=== PATIENT | male | born 1970 | race Hispanic/Latino ===

== ENCOUNTER 2016-05-27 15:12 | Emergency (ER) | payer OTHER ==
--- NOTE | 2016-05-27 15:35 | Emergency Department Report ---
Stated Complaint: POSS STROKE Time Seen by Provider: 05/27/16 15:29 - HPI History of Present Illness: [id number] male comes in today for concern of right-sided weakness to his smile and reported slurred by family members about 08 30 this morning. Patient reports he doesn't feel like his speech was slurred or space was drooping. Patient has a past medical history hypoglycemia no diagnosis of diabetes. She does report he had a fall getting out of his work truck today is that his legs are numb mostly the left leg and left side. - Exam Physical Exam: Patient's alert and oriented. Neurologic exam left-sided weakness with handgrip , tongue protrusions intact there is no deviation uvula is intact and midline, strengths 5 out of 5 on the right to 5 on the left. Handgrip weakness on the left, there is some mild droopiness to the left side corner of the smile. Cardiovascular patient tachycardic respiratory clear to auscultation bilateral MSE screening note: Focused history and physical exam performed. Due to findings the following was ordered: Evaluated by this provider in MSE triage. She ate stroke protocol. Patient evaluated in main ER ED Disposition for MSE Condition: Stable
[2016-05-27 15:53] VITALS: BP 133/83
--- NOTE | 2016-05-27 16:40 | Cat Scan Report ---
FINAL REPORT PROCEDURE: CT HEAD/BRAIN WO CON TECHNIQUE: Computerized tomography of the head was performed without contrast material. HISTORY: neuro deficits \T\lt; 6hrs or sx present upon awakening COMPARISON: No prior studies are available for comparison. FINDINGS: Skull and scalp: Normal. Paranasal sinuses: Normal. 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 Cerebellum and brainstem: No evidence of hemorrhage, acute infarction or mass. Vasculature: Mild to moderately dense vessels without arthur asymmetry or hyperdense MCA sign. Comments: Moderate diffuse atrophy with mild periventricular microischemic change and central lacunar infarct disease. IMPRESSION: No evidence of acute ischemic change suspected at this time. If symptoms and or concern persist consider followup MRI
[2016-05-27 16:45] LABS: Basophils % (Auto) 0.8 % (0.0-1.8); Eosinophils % (Auto) 1.8 % (0.0-4.3); Hematocrit 45.3 % (35.5-45.6); Hemoglobin 15.6 gm/dl (11.8-15.2); Mean Corpuscular HGB Conc 34 % (32-34); Mean Corpuscular Hemoglobin 32 pg (28-32); Mean Corpuscular Volume 94 fl (84-94); Red Blood Count 4.82 M/mm3 (3.65-5.03); White Blood Count 6.7 K/mm3 (4.5-11.0)
[2016-05-27 16:46] LABS: Platelet Count 149 K/mm3 (140-440)
[2016-05-27 16:47] LABS: Anion Gap 20 mmol/L; BUN/Creatinine Ratio 18.75; Blood Urea Nitrogen 15 mg/dL (9-20); Calcium 9.2 mg/dL (8.4-10.2); Carbon Dioxide 23 mmol/L (22-30); Glucose 121 mg/dL (75-100); Potassium 3.9 mmol/L (3.6-5.0); Sodium 140 mmol/L (137-145)
[2016-05-27 16:59] LABS: INR 0.99 (0.87-1.13)
[2016-05-27 17:00] LABS: Partial Thromboplastin Time 34.9 Sec. (24.2-36.6)
--- NOTE | 2016-05-27 17:37 | Emergency Department Report ---
ED General Adult HPI - General Chief complaint: Neuro Symptoms/Deficit Stated complaint: POSS STROKE Time Seen by Provider: 05/27/16 15:29 Source: patient, family Mode of arrival: Ambulatory Limitations: No Limitations - History of Present Illness Initial comments: [id number] male comes in today for concern of right-sided weakness to his smile and reported slurred by family members about 08 30 this morning. Patient reports he doesn't feel like his speech was slurred or space was drooping. Patient has a past medical history hypoglycemia no diagnosis of diabetes. She does report he had a fall getting out of his work truck today is that his legs are numb mostly the left leg and left side. - Related Data Allergies Allergy/AdvReac Type Severity Reaction Status Date / Time No Known Allergies Allergy Unverified 05/27/16 15:37 ED Review of Systems ROS: Stated complaint: POSS STROKE Other details as noted in HPI Eyes: denies: eye pain, eye discharge, vision change ENT: denies: ear pain, throat pain Respiratory: no symptoms reported Gastrointestinal: denies: abdominal pain, nausea, diarrhea Neurological: headache, weakness, numbness ED Past Medical Hx - Past Medical History Previous Medical History?: No - Surgical History Past Surgical History?: No - Social History Smoking Status: Current Every Day Smoker Substance Use Type: Alcohol ED Physical Exam - General Limitations: No Limitations General appearance: alert, in no apparent distress - Head Head exam: Present: atraumatic, normocephalic - Eye Eye exam: Present: normal appearance, PERRL, EOMI Pupils: Present: normal accommodation - ENT ENT exam: Present: normal exam, mucous membranes moist - Neck Neck exam: Present: normal inspection, tenderness, full ROM. Absent: lymphadenopathy - Respiratory Respiratory exam: Present: normal lung sounds bilaterally. Absent: respiratory distress - Cardiovascular Cardiovascular Exam: Present: regular rate, normal heart sounds - GI/Abdominal GI/Abdominal exam: Present: soft. Absent: distended, tenderness - Expanded Neurological Exam Expanded Speech: Present: fluid speech Cranial nerves: EOM's Intact: Normal, Gag Reflex: Normal, Tongue Deviation: Normal, Nystagmus: Normal, Facial Sensation: Normal Cerebellar function: Finger to Nose: Normal, Heel to Guerrero: Normal Sensory exam: Upper Extremity Light Touch: Normal, Lower Extremity Light Touch: Normal, Lower Extremity Temperature: Normal Motor strength exam: RUE: 5, LUE: 4, RLE: 5, LLE: 4 ED Course Vital Signs 05/27/16 15:41 Temperature 98.0 F Pulse Rate 105 H Respiratory 18 Rate Blood Pressure 133/83 O2 Sat by Pulse 96 Oximetry ED Medical Decision Making - Lab Data Result diagrams: 05/27/16 16:11 05/27/16 16:11 - Medical Decision Making She's been evaluated by this provider. Case was discussed with Dr. Tuttle vital signs repeated blood pressures 131/79, 86 respirations 14, 100% on room air CT of the head, labs ordered. Review of labs and CAT scan within normal limits. Discussed with patient that we will charge him with close follow-up with neurology and her primary care provider. Patient and family verbalized understanding. Critical care attestation.: If time is entered above; I have spent that time in minutes in the direct care of this critically ill patient, excluding procedure time. ED Disposition Clinical Impression: TIA (transient ischemic attack) Qualifiers: Transient cerebral ischemia type: unspecified Qualified Code(s): G45.9 - Transient cerebral ischemic attack, unspecified Disposition: DISCHARGED TO HOME OR SELFCARE Is pt being admited?: No Does the pt Need Aspirin: No Condition: Stable Additional Instructions: Discuss with patient the importance of follow-up with a neurologist and her primary care provider. Patient is accompanied by his family his mother's brother and sister they will also encouraged him to continue follow-up. Referrals: LAY WAGNER MD [Staff Physician] - 3-5 Days WASHINGTON MENDEZ MD [Referring] - 3-5 Days BEATRIZ SCOTT MD [Staff Physician] - 3-5 Days MELINDA KNOX MD [Staff Physician] - 3-5 Days Forms: Work/School Release Form(ED)
== END 2016-05-27 17:53 | disposition home or self-care (01) ==
LOC: ED 15:12
DX: G45.9 Transient cerebral ischemic attack, unspecified (principal); F17.200 Nicotine dependence, unspecified, uncomplicated
CPT/HCPCS: 36415; 70450; 80048; 82962; 84484; 85025; 85610; 85670; 85730; 93005; 93010

== ENCOUNTER 2016-06-23 22:04 | Emergency (ER) | payer OTHER ==
[2016-06-23 23:20] LABS: Basophils % (Auto) 0.8 % (0.0-1.8); Eosinophils % (Auto) 1.8 % (0.0-4.3); Hematocrit 44.3 % (35.5-45.6); Hemoglobin 14.8 gm/dl (11.8-15.2); Mean Corpuscular HGB Conc 34 % (32-34); Mean Corpuscular Hemoglobin 32 pg (28-32); Mean Corpuscular Volume 94 fl (84-94); Platelet Count 133 K/mm3 (140-440); Red Cell Distribution Width 13.1 % (13.2-15.2); White Blood Count 7.8 K/mm3 (4.5-11.0)
[2016-06-23 23:31] LABS: INR 0.89 (0.87-1.13)
[2016-06-23 23:32] LABS: Partial Thromboplastin Time 32.8 Sec. (24.2-36.6)
[2016-06-23 23:35] LABS: Creatine Kinase MB 1.5 ng/mL (0.0-4.0)
[2016-06-23 23:36] LABS: Anion Gap 19 mmol/L; BUN/Creatinine Ratio 16.25; Blood Urea Nitrogen 13 mg/dL (9-20); Calcium 9.4 mg/dL (8.4-10.2); Carbon Dioxide 25 mmol/L (22-30); Chloride 100.2 mmol/L (98-107); Creatine Kinase 65 units/L (55-170); Glucose 146 mg/dL (75-100); Sodium 140 mmol/L (137-145)
[2016-06-24 01:43] VITALS: BP 129/69
--- NOTE | 2016-06-24 02:05 | Cat Scan Report ---
FINAL REPORT PROCEDURE: CT HEAD/BRAIN WO CON TECHNIQUE: Computerized tomography of the head was performed without contrast material. HISTORY: Facial numbness, left arm numb, recent TIA 05/27/16 COMPARISON: 05/27/2016 FINDINGS: Skull and scalp: Normal. Paranasal sinuses: Normal. Ventricles and subarachnoid spaces: Normal. Cerebrum: No evidence of hemorrhage, acute infarction or mass . Cerebellum and brainstem: There is no evidence of acute hemorrhage or hematoma. A matthew cisterna magna versus an arachnoid cyst is again noted... Vasculature: Normal. Comments: None. IMPRESSION: There is no evidence of an acute intracranial process.
[2016-06-24] MEDS ORDERED: ULTRAM PO ONE (02:25)
[2016-06-24] MEDS ORDERED: TORADOL IM ONE (02:25)
--- NOTE | 2016-06-24 03:46 | Emergency Department Report ---
ED Chest Pain HPI - General Chief Complaint: Chest Pain Stated Complaint: CHEST PAIN/LFT SIDE NUMBNESS Time Seen by Provider: 06/24/16 02:06 Source: patient Mode of arrival: Ambulatory Limitations: No Limitations - History of Present Illness Initial Comments: 45-year-old male with no significant past medical history presents to the hospital complaining of left upper chest wall pain radiating to his arm and neck since 11 AM June 23. Pain mild shortness of breath reported. Patient states he has a chronic dry cough because he is a smoker. Pain is constant, aching, worse with palpation and movement. Patient denies nausea, vomiting, diaphoresis, calf tenderness, recent travel, history of PE/DVT. Patient also denies family history of CAD. Patient was seen here in May and had a diagnosis of TIA. Patient did not follow-up with neurology or primary care doctor as advised. Severity scale (0 -10): 8 - Related Data Previous Rx's Medication Instructions Recorded Last Taken Type Ibuprofen [Motrin] 800 mg PO Q8HR PRN #30 tablet 06/24/16 Unknown Rx traMADol [Ultram 50 MG tab] 50 mg PO Q6HR PRN #20 tablet 06/24/16 Unknown Rx Allergies Allergy/AdvReac Type Severity Reaction Status Date / Time No Known Allergies Allergy Unverified 05/27/16 15:37 HTI score - Thi Score Age > 65: (0) No Aspirin use within the Past 7 Days: (0) No 3 or more CAD Risk Factors: (0) No 2 or more Angina events in past 24 hrs: (0) No Known CAD with more than 50% Stenosis: (0) No Elevated Cardiac Markers: (0) No ST Deviation Greater than 0.5mm: (0) No THI Score: 0 ED Review of Systems ROS: Stated complaint: CHEST PAIN/LFT SIDE NUMBNESS Other details as noted in HPI Comment: All other systems reviewed and negative Other: Constitutional: No fevers chills Eyes: No eye pain visual changes ENT: No ear pain or throat pain Neck: Denies pain Respiratory: as per hpi Cardiovascular: as per hpi GI: Denies abdominal pain, nausea, vomiting, diarrhea : Denies dysuria Musculoskeletal: Denies back pain Skin: Denies rash, lesions, erythema Neurologic: Denies headache, weakness Psychiatric: Denies suicidal ideation, hallucinations ED Past Medical Hx - Past Medical History Previous Medical History?: Yes Additional medical history: TIA 05/27/16 - Surgical History Past Surgical History?: No - Social History Smoking Status: Current Every Day Smoker Substance Use Type: Alcohol - Medications Home Medications: Home Medications Medication Instructions Recorded Confirmed Last Taken Type Ibuprofen [Motrin] 800 mg PO Q8HR PRN #30 tablet 06/24/16 Unknown Rx traMADol [Ultram 50 MG tab] 50 mg PO Q6HR PRN #20 tablet 06/24/16 Unknown Rx ED Physical Exam - General Limitations: No Limitations - Other Other exam information: General: No limitations, patient is alert in no acute distress Head exam: Atraumatic, normocephalic Eyes exam: Normal appearance ENT: Moist mucous membrane, poor senior care with multiple missing teeth and dental caries Neck exam: Normal inspection, full range of motion, no meningismus nontender Respiratory exam: Clear to auscultation bilateral, no wheezes, rales, crackles Cardiovascular: Normal rate and rhythm, normal heart sounds. Patient has reproducible tenderness to left upper chest and left-sided neck. Abdomen: Soft, nondistended, and nontender, with normal bowel sounds, no rebound, or guarding Extremity: Full range of motion normal inspection no deformity, no calf tenderness or edema Back: Normal Inspection, full range of motion, no tenderness Neurologic: Alert, oriented x3, cranial nerves intact, no motor or sensory deficit Psychiatric: normal affect, normal mood Skin: Warm, dry, intact ED Course Vital Signs 06/23/16 06/24/16 06/24/16 22:34 01:42 01:43 Temperature 97.5 F L Pulse Rate 88 92 H 92 H Respiratory 20 18 18 Rate Blood Pressure 147/93 129/69 [Right] O2 Sat by Pulse 98 98 98 Oximetry - Reevaluation(s) Reevaluation #1: 06/24/16 Patient received Toradol and tramadol for pain ED Medical Decision Making - Lab Data Result diagrams: 06/23/16 22:50 06/23/16 22:50 Lab Results 06/23/16 06/23/16 06/23/16 Range/Units 22:50 22:50 22:50 WBC 7.8 (4.5-11.0) K/mm3 RBC 4.70 (3.65-5.03) M/mm3 Hgb 14.8 (11.8-15.2) gm/dl Hct 44.3 (35.5-45.6) % MCV 94 (84-94) fl MCH 32 (28-32) pg MCHC 34 (32-34) % RDW 13.1 L (13.2-15.2) % Plt Count 133 L (140-440) K/mm3 Lymph % (Auto) 21.2 (13.4-35.0) % [place] % (Auto) 7.1 (0.0-7.3) % Eos % (Auto) 1.8 (0.0-4.3) % Baso % (Auto) 0.8 (0.0-1.8) % Lymph # 1.6 (1.2-5.4) K/mm3 [place] # 0.5 (0.0-0.8) K/mm3 Eos # 0.1 (0.0-0.4) K/mm3 Baso # 0.1 (0.0-0.1) K/mm3 Seg Neutrophils % 69.1 (40.0-70.0) % Seg Neutrophils # 5.4 (1.8-7.7) K/mm3 PT 11.9 L (12.2-14.9) Sec. INR 0.89 (0.87-1.13) APTT 32.8 (24.2-36.6) Sec. Sodium 140 (137-145) mmol/L Potassium 4.0 (3.6-5.0) mmol/L Chloride 100.2 (98-107) mmol/L Carbon Dioxide 25 (22-30) mmol/L Anion Gap 19 mmol/L BUN 13 (9-20) mg/dL Creatinine 0.8 (0.8-1.5) mg/dL Estimated GFR > 60 ml/min BUN/Creatinine Ratio 16.25 % Glucose 146 H (75-100) mg/dL Calcium 9.4 (8.4-10.2) mg/dL Total Creatine Kinase 65 (55-170) units/L CK-MB (CK-2) 1.5 (0.0-4.0) ng/mL CK-MB (CK-2) Rel Index 2.3 (0-4) Troponin T < 0.010 (0.00-0.029) ng/mL 06/24/16 Range/Units 01:55 WBC (4.5-11.0) K/mm3 RBC (3.65-5.03) M/mm3 Hgb (11.8-15.2) gm/dl Hct (35.5-45.6) % MCV (84-94) fl MCH (28-32) pg MCHC (32-34) % RDW (13.2-15.2) % Plt Count (140-440) K/mm3 Lymph % (Auto) (13.4-35.0) % [place] % (Auto) (0.0-7.3) % Eos % (Auto) (0.0-4.3) % Baso % (Auto) (0.0-1.8) % Lymph # (1.2-5.4) K/mm3 [place] # (0.0-0.8) K/mm3 Eos # (0.0-0.4) K/mm3 Baso # (0.0-0.1) K/mm3 Seg Neutrophils % (40.0-70.0) % Seg Neutrophils # (1.8-7.7) K/mm3 PT (12.2-14.9) Sec. INR (0.87-1.13) APTT (24.2-36.6) Sec. Sodium (137-145) mmol/L Potassium (3.6-5.0) mmol/L Chloride (98-107) mmol/L Carbon Dioxide (22-30) mmol/L Anion Gap mmol/L BUN (9-20) mg/dL Creatinine (0.8-1.5) mg/dL Estimated GFR ml/min BUN/Creatinine Ratio % Glucose (75-100) mg/dL Calcium (8.4-10.2) mg/dL Total Creatine Kinase (55-170) units/L CK-MB (CK-2) (0.0-4.0) ng/mL CK-MB (CK-2) Rel Index (0-4) Troponin T < 0.010 (0.00-0.029) ng/mL - EKG Data -: EKG Interpreted by Me (nsr [address] / t abnl) - EKG Data When compared to previous EKG there are: no significant change (compared to ) - Radiology Data Radiology results: report reviewed (ct head: naf) - Medical Decision Making Patient's symptoms are atypical for CA and patient does not have any risk factors for PE and has normal vital signs. Pain is reproducible on exam. Patient has 2 negative cardiac enzymes. Patient be discharged home musculoskeletal pain and once again follow up with primary care doctor will be encouraged. - Differential Diagnosis radiculopathy, chest wall strain, CA, stable angina, costochondritis Critical Care Time: No Critical care attestation.: If time is entered above; I have spent that time in minutes in the direct care of this critically ill patient, excluding procedure time. ED Disposition Clinical Impression: Chest wall pain, Paresthesia, Chronic cough Disposition: DISCHARGED TO HOME OR SELFCARE Is pt being admited?: No Does the pt Need Aspirin: No Condition: Stable Instructions: Chest Pain (ED) Additional Instructions: Take the medication as needed for pain. Follow-up with the clinic provided. Return if symptoms worsen. Prescriptions: Ibuprofen [Motrin] 800 mg PO Q8HR PRN #30 tablet PRN Reason: Pain traMADol [Ultram 50 MG tab] 50 mg PO Q6HR PRN #20 tablet PRN Reason: Pain Referrals: [facility] [Provider Group] - 3-5 Days Time of Disposition: 03:45
== END 2016-06-24 03:52 | disposition home or self-care (01) ==
LOC: ED 22:04
DX: R07.89 Other chest pain (principal); R05 Cough; R20.9 Unspecified disturbances of skin sensation; F17.200 Nicotine dependence, unspecified, uncomplicated
CPT/HCPCS: 36415; 70450; 80048; 82550; 82553; 84484; 85025; 85610; 85730; 93005; 93010; 96372; 99285; J1885

== ENCOUNTER 2017-07-25 19:58 | Emergency (ER) | payer OTHER ==
[2017-07-26] MEDS ORDERED: XYLOCAINE 2% INFILTRATI ONE (01:46)
--- NOTE | 2017-07-26 01:47 | Emergency Department Report ---
Abscess Boil HPI - HPI Chief Complaint: Skin/Abscess/Foreign Body Stated Complaint: SPIDER BITE Time Seen by Provider: 07/26/17 01:40 Duration: 3 Days Location: Upper Extremity (right forearm) Severity: Moderate History: Yes Pain, Yes Purulent Drainage, Yes Insect Bite, No Fever, No Numbness , No Foreign Body, No Previous History HPI: This is a 46 y.o. male that presents with abscess to right forearm for 3 days. Patient reports pain as 8/10 on scale and constant. He was at work 3 days ago and felt something bite him. He kept working and didn't think about it until the next morning he noticed swelling, redness, and pain to right forearm. He cleaned area with peroixide and applied neosporin to wound. States pain and swelling got worse over the past 2 days. He has not taken anything for pain. He applied a bandaid to wound daily and noticed some yellowish discharge from abscess. Denies numbness/tingling or fever. Home Medications: Previous Rx's Medication Instructions Recorded Last Taken Type Ibuprofen [Motrin] 800 mg PO Q8HR PRN #30 tablet 06/24/16 Unknown Rx traMADol [Ultram 50 MG tab] 50 mg PO Q6HR PRN #20 tablet 06/24/16 Unknown Rx Ibuprofen 800 mg PO Q6H PRN #20 tablet 07/26/17 Unknown Rx Sulfamethoxazole/Trimethoprim 1 each PO BID 10 Days #20 tablet 07/26/17 Unknown Rx [Bactrim DS TAB] Allergies/Adverse Reactions: Allergies Allergy/AdvReac Type Severity Reaction Status Date / Time No Known Allergies Allergy Unverified 05/27/16 15:37 ED Review of Systems ROS: Stated complaint: SPIDER BITE Other details as noted in HPI Constitutional: denies: chills, fever Respiratory: denies: cough, shortness of breath, wheezing Cardiovascular: denies: chest pain, palpitations Gastrointestinal: denies: abdominal pain, nausea, diarrhea Skin: lesions (abscess to right forearm). denies: rash, change in hair/nails, pruritus Neurological: denies: headache, weakness, numbness, paresthesias Psychiatric: denies: anxiety, depression ED Past Medical Hx - Past Medical History Additional medical history: TIA 05/27/16 - Surgical History Past Surgical History?: No - Social History Smoking Status: Current Every Day Smoker Substance Use Type: None - Medications Home Medications: Home Medications Medication Instructions Recorded Confirmed Last Taken Type Ibuprofen [Motrin] 800 mg PO Q8HR PRN #30 tablet 06/24/16 Unknown Rx traMADol [Ultram 50 MG tab] 50 mg PO Q6HR PRN #20 tablet 06/24/16 Unknown Rx Ibuprofen 800 mg PO Q6H PRN #20 tablet 07/26/17 Unknown Rx Sulfamethoxazole/Trimethoprim 1 each PO BID 10 Days #20 tablet 07/26/17 Unknown Rx [Bactrim DS TAB] ED Abscess Boil Physical Exam - Exam General: Vital signs noted. No distress. Alert and acting appropriately. Front/Back of Body, Lg (Color): 1 - 1 cm nodule, erythematous, fluctuant, tender, purulent drainage, Size: 1 cm Exam: Yes Tenderness, Yes Fluctuance, Yes Surrounding Cellulites/Erythema, Yes Normal Neurologic Exam, Yes Normal Circulation, No Lymphangitis, No Crepitation , No Heart Murmur I & D Note - I & D Note I & D Note: The area was prepared and draped in the usual, sterile manner. The site was anesthetized with 2% lidocaine without epinephrine. A linear incision along the local skin lines was made and the purulent material expressed. The abcess was explored thoroughly and sequestered pockets were opened. Bleeding was minimal. Packing: idodoform. Followup: The patient tolerated the procedure well without complications. Standard post-procedure care was explained and return precautions are given. ED Course Vital Signs 07/25/17 21:50 Temperature 98.4 F Pulse Rate 99 H Respiratory 16 Rate Blood Pressure 141/88 O2 Sat by Pulse 100 Oximetry Critical care attestation.: If time is entered above; I have spent that time in minutes in the direct care of this critically ill patient, excluding procedure time. ED Medical Decision Making - Medical Decision Making This is a 46 y.o. male that presents with a painful abscess to right forearm for 3 days from insect bite. No history of prior abscess. Patient is stable and examined by me. Vitals stable Physical assessment of 1 cm fluctuance nodule to right forearm. No acute signs of distress noted. Given tramadol 50 mg po once in ER. I&D refer to note. Discussed plan to start bactrim DS and ibuprofen with patient for cellulitis. Educated patient on follow up plan to have packing removed and wound reassessed in 2-3 days. Patient agrees to ED plan of care. Discharged home and follow up with PCP in 2-3 days. ED Disposition Clinical Impression: Cellulitis of forearm, right Spider bite wound Qualifiers: Encounter type: initial encounter Injury intent: accidental or unintentional Qualified Code(s): T63.301A - Toxic effect of unspecified spider venom, accidental (unintentional), initial encounter Disposition: TO HOME OR SELFCARE Is pt being admited?: No Does the pt Need Aspirin: No Condition: Stable Instructions: Cellulitis (ED), Insect Bite or Sting (ED) Additional Instructions: Keep packing in place for 2-3 days. Return to ER or f/u with PCP to have packing removed and wound reassessed. Complete full round of bactrim DS antibiotic as prescribed. Follow up with PCP or ER in 2-3 days. Return to ER if foul smelling discharge, swelling, or severe pain to wound. Prescriptions: Ibuprofen 800 mg PO Q6H PRN #20 tablet PRN Reason: Pain Sulfamethoxazole/Trimethoprim [Bactrim DS TAB] 1 each PO BID 10 Days #20 tablet Referrals: MELINDA KNOX MD [Primary Care Provider] - 3-5 Days [facility] [Provider Group] - 3-5 Days [facility] [Provider Group] - 3-5 Days [facility] [Provider Group] - 3-5 Days Forms: Work/School Release Form(ED) Time of Disposition: 02:45 Print Language: UPPER SORBIAN
[2017-07-26] MEDS ORDERED: ULTRAM PO ONE (01:55)
[2017-07-26 02:56] VITALS: BP 136/77
== END 2017-07-26 02:55 | disposition home or self-care (01) ==
LOC: ED 19:58
DX: T63.301A Toxic effect of unspecified spider venom, accidental (unintentional), initial encounter (principal); L02.413 Cutaneous abscess of right upper limb; L03.113 Cellulitis of right upper limb; F17.200 Nicotine dependence, unspecified, uncomplicated; Z86.72 Personal history of thrombophlebitis; Y92.89 Other specified places as the place of occurrence of the external cause

== ENCOUNTER 2017-11-08 19:24 | Emergency (ER) | payer OTHER ==
[2017-11-08 19:59] VITALS: BP 131/75
[2017-11-09] MEDS ORDERED: PERCOCET 5/325 PO ONE (00:59)
--- NOTE | 2017-11-09 01:34 | Emergency Department Report ---
Abscess Boil HPI - HPI Chief Complaint: Skin/Abscess/Foreign Body Stated Complaint: RASH Time Seen by Provider: 11/08/17 23:22 Duration: 3 Days Location: Other (perineum) Severity: Severe History: Yes Pain, Yes Previous History, No Fever, No Purulent Drainage, No Numbness, No Foreign Body, No Insect Bite HPI: 46-year-old male comes in complaint of left buttock abscess. Patient denies any fever denies any drainage reports a possible recent exposure to staff. Patient reports he takes no medications on a daily basis has no known drug allergies. Home Medications: Previous Rx's Medication Instructions Recorded Last Taken Type Ibuprofen [Motrin] 800 mg PO Q8HR PRN #30 tablet 06/24/16 Unknown Rx traMADol [Ultram 50 MG tab] 50 mg PO Q6HR PRN #20 tablet 06/24/16 Unknown Rx Ibuprofen 800 mg PO Q6H PRN #20 tablet 07/26/17 Unknown Rx Sulfamethoxazole/Trimethoprim 1 each PO BID 10 Days #20 tablet 07/26/17 Unknown Rx [Bactrim DS TAB] Cephalexin [Keflex] 500 mg PO Q12H 10 Days #20 capsule 11/09/17 Unknown Rx Chlorhexidine Gluconate [Hibiclens] 1 applicatio TP QDAY #236 ml 11/09/17 Unknown Rx Sulfamethoxazole/Trimethoprim 1 each PO BID 10 Days #20 tablet 11/09/17 Unknown Rx [Bactrim DS TAB] traMADol [Ultram 50 MG tab] 50 mg PO Q6HR PRN #12 tablet 11/09/17 Unknown Rx Allergies/Adverse Reactions: Allergies Allergy/AdvReac Type Severity Reaction Status Date / Time No Known Allergies Allergy Unverified 05/27/16 15:37 ED Review of Systems ROS: Stated complaint: RASH Other details as noted in HPI Constitutional: denies: chills, fever Skin: lesions ED Past Medical Hx - Past Medical History Previous Medical History?: No Additional medical history: TIA 05/27/16 - Surgical History Past Surgical History?: No - Social History Smoking Status: Current Every Day Smoker - Medications Home Medications: Home Medications Medication Instructions Recorded Confirmed Last Taken Type Ibuprofen [Motrin] 800 mg PO Q8HR PRN #30 tablet 06/24/16 Unknown Rx traMADol [Ultram 50 MG tab] 50 mg PO Q6HR PRN #20 tablet 06/24/16 Unknown Rx Ibuprofen 800 mg PO Q6H PRN #20 tablet 07/26/17 Unknown Rx Sulfamethoxazole/Trimethoprim 1 each PO BID 10 Days #20 tablet 07/26/17 Unknown Rx [Bactrim DS TAB] Cephalexin [Keflex] 500 mg PO Q12H 10 Days #20 capsule 11/09/17 Unknown Rx Chlorhexidine Gluconate [Hibiclens] 1 applicatio TP QDAY #236 ml 11/09/17 Unknown Rx Sulfamethoxazole/Trimethoprim 1 each PO BID 10 Days #20 tablet 11/09/17 Unknown Rx [Bactrim DS TAB] traMADol [Ultram 50 MG tab] 50 mg PO Q6HR PRN #12 tablet 11/09/17 Unknown Rx ED Abscess Boil Physical Exam - Exam General: Vital signs noted. No distress. Alert and acting appropriately. Size: 3 cm (3 areas) Exam: Yes Tenderness, Yes Fluctuance, Yes Surrounding Cellulites/Erythema, Yes Normal Neurologic Exam, Yes Normal Circulation, No Lymphangitis, No Crepitation , No Heart Murmur I & D Note - I & D Note I & D Note: DATE OF PROCEDURE: 11/09/2017. PREOPERATIVE DIAGNOSES: 1.soft tissue infection less gluteal. . POSTOPERATIVE DIAGNOSES: 1. Abscess. 2. .........soft tissue infection. Infection appeared to be contained to subcutaneous tissue and there was no evidence of necrotizing soft tissue infection including myonecrosis. OPERATION PERFORMED: Incision and drainage of ..... soft tissue abscess. Provider: Tristian Kapadia PA-C. ANESTHESIA: Local. DESCRIPTION OF PROCEDURE: The patient was prepped and draped. Seropurulent, somewhat bloody fluid was noted. The infection appeared contained to a golf ball-sized area in the subcutaneous tissues above the fascia. There was no evidence of myonecrosis, penetration of the fascia or significant extent along the fascia of the infection. We cleaned the area with Betadine small thick purulent discharge extracted from abscess ......... Dry dressings were applied. The patient appeared to tolerate the procedure well. ED Course Vital Signs 11/08/17 11/08/17 19:52 20:11 Temperature 98.2 F 98.2 F Pulse Rate 115 H 114 H Respiratory 22 18 Rate Blood Pressure 131/75 131/75 O2 Sat by Pulse 97 97 Oximetry Critical care attestation.: If time is entered above; I have spent that time in minutes in the direct care of this critically ill patient, excluding procedure time. ED Medical Decision Making - Medical Decision Making Patient has been evaluated by this provider in fast track. Patient has 3 abscesses on left gluteal near the perineum and the cleft. Attempt to express thick yellow purulent discharge. Discussed the patient that he needs to soak in warm Epsom salt water take antibiotics and pain medication as prescribed. Wash with chlorhexidine and follow-up with his primary care provider ED Disposition Clinical Impression: Abscess or cellulitis of perineum, Staphylococcal infection of skin Disposition: DC-01 TO HOME OR SELFCARE Is pt being admited?: No Does the pt Need Aspirin: No Condition: Stable Instructions: Abscess (ED), Methicillin Resistant Staphylococcus Aureus (ED) Additional Instructions: Please complete both antibiotics and take pain medication as prescribed. Please use the chlorhexidine body wash at least once a day be sure to clean under your fingernails daily. Please do warm Epsom salt soaks at least 3 times a week. For the next week. Prescriptions: Cephalexin [Keflex] 500 mg PO Q12H 10 Days #20 capsule Chlorhexidine Gluconate [Hibiclens] 1 applicatio TP QDAY #236 ml Sulfamethoxazole/Trimethoprim [Bactrim DS TAB] 1 each PO BID 10 Days #20 tablet traMADol [Ultram 50 MG tab] 50 mg PO Q6HR PRN #12 tablet PRN Reason: Pain Referrals: MELINDA KNOX MD [Primary Care Provider] - 3-5 Days Forms: Work/School Release Form(ED)
== END 2017-11-09 02:05 | disposition home or self-care (01) ==
LOC: ED 19:24
DX: L02.215 Cutaneous abscess of perineum (principal); L03.315 Cellulitis of perineum; F17.200 Nicotine dependence, unspecified, uncomplicated
CPT/HCPCS: 99282

== ENCOUNTER 2018-05-27 21:36 | Inpatient (IN) | payer OTHER ==
--- NOTE | 2018-05-27 21:56 | Emergency Department Report ---
Blank Doc - Documentation Documentation: This is a 47-year-old male that presents with left sided chest pain with radia tion to left sided arm. Also has some SOB. PMH: Stroke, DM This initial assessment diagnostic orders/clinical plan/treatment(s) is/are subject to change based on patient's health status, clinical progression and re- assessment by fellow clinical providers in the ED. Further treatment and workup at subsequent clinical providers discretion. Patient/guardians urged not to elope from ED s their condition may be serious if not clinically assessed and managed. Initial orders include: 1-Patient sent to MAIN ED for further evaluation and treatment 2- EKG 3- Labs
--- NOTE | 2018-05-27 22:57 | XRay Report ---
FINAL REPORT PROCEDURE: XR CHEST ROUTINE 2V TECHNIQUE: PA and lateral chest radiographs were obtained. CPT 36777 HISTORY: Chest Pain COMPARISON: 01/25/2018 FINDINGS: Heart: Normal. Mediastinum/Vessels: Normal. Lungs/Pleural space: Lungs are expanded. There are no infiltrates, effusions or pneumothoraces.. Bony thorax: No acute osseous abnormality. Other: IMPRESSION: There is no acute cardiopulmonary abnormality..
[2018-05-27] MEDS ORDERED: NACL 0.9% 1000 ML 1,000 ML IV ONE (23:01)
[2018-05-27] MEDS ORDERED: MORPHINE IV ONE (23:02)
[2018-05-27 23:05] LABS: Basophils % (Auto) 0.2 % (0.0-1.8); Eosinophils # (Auto) 0.2 K/mm3 (0.0-0.4); Eosinophils % (Auto) 2.1 % (0.0-4.3); Lymphocytes # (Auto) 1.7 K/mm3 (1.2-5.4); Lymphocytes % (Auto) 19.9 % (13.4-35.0); Mean Corpuscular HGB Conc 37 % (32-34); Mean Corpuscular Volume 96 fl (84-94); Monocytes # (Auto) 0.5 K/mm3 (0.0-0.8); Monocytes % (Auto) 5.8 % (0.0-7.3); Platelet Count 121 K/mm3 (140-440); Red Blood Count 4.42 M/mm3 (3.65-5.03)
[2018-05-27 23:10] LABS: Hematocrit 42.5 % (35.5-45.6); Hemoglobin 15.5 gm/dl (11.8-15.2)
[2018-05-27 23:12] LABS: INR 0.85 (0.87-1.13); Partial Thromboplastin Time 29.7 Sec. (24.2-36.6)
[2018-05-27 23:23] LABS: Albumin 3.8 g/dL (3.9-5); BUN/Creatinine Ratio 15; Blood Urea Nitrogen 18 mg/dL (9-20); Calcium 8.9 mg/dL (8.4-10.2); Hemolysis Index 68
[2018-05-27 23:35] LABS: Alanine Aminotransferase 66 units/L (7-56)
--- NOTE | 2018-05-28 00:20 | Emergency Department Report ---
ED Chest Pain HPI - General Chief Complaint: Chest Pain Stated Complaint: CHEST PAIN/NUMBNESS ON LEFT SIDE Time Seen by Provider: 05/27/18 21:46 Source: patient Mode of arrival: Ambulatory Limitations: No Limitations - History of Present Illness Initial Comments: 47-year-old male presents to the emergency department with a 3-4 day history of left-sided chest pain, shortness of breath and some left arm numbness and no paresthesias. The chest pain has been intermittent until today where it has now remained constant since this morning. He has not taken anything for his symptoms prior to presentation. He has a past medical history of non-insulin- dependent diabetes and previous TIA. He is a tobacco smoker but denies any illicit drug use. No recent travel or sick contacts at home. His primary care physician is Dr. Pinzon. He does not have any cardiac surgeon. Severity scale (0 -10): 5 - Related Data Home Medications Medication Instructions Recorded Confirmed Last Taken Losartan 0.5 tab PO DAILY 05/27/18 05/27/18 Unknown metFORMIN [Glucophage] 500 mg PO BID 05/27/18 05/27/18 Unknown Previous Rx's Medication Instructions Recorded Last Taken Type Aspirin EC [Aspirin Enteric Coated 81 mg PO QDAY #30 tablet. 01/26/18 Unknown Rx TAB] Famotidine [Pepcid] 20 mg PO BID #30 tablet 01/26/18 Unknown Rx Allergies Allergy/AdvReac Type Severity Reaction Status Date / Time lisinopril Allergy Unknown Verified 05/27/18 23:25 Heart Score - HEART Score History: Moderately suspicious EKG: Normal Age: 45-65 Risk factors: 1-2 risk factors Troponin: < normal limit HEART Score: 3 - Critical Actions Critical Actions: 0-3 pts:0.9-1.7%risk of adverse cardiac event.Candidate for discharge ED Review of Systems ROS: Stated complaint: CHEST PAIN/NUMBNESS ON LEFT SIDE Other details as noted in HPI Comment: All other systems reviewed and negative Constitutional: denies: chills, fever Eyes: denies: eye pain, vision change ENT: denies: ear pain, throat pain Respiratory: shortness of breath. denies: cough Cardiovascular: chest pain. denies: palpitations Gastrointestinal: denies: abdominal pain, vomiting Genitourinary: denies: dysuria, frequency Musculoskeletal: arthralgia, myalgia. denies: back pain Skin: denies: rash, lesions Neurological: paresthesias. denies: headache ED Past Medical Hx - Past Medical History Hx Hypertension: Yes Hx Congestive Heart Failure: No Hx Diabetes: Yes Hx Asthma: No Hx COPD: No Additional medical history: TIA 05/27/16, High Cholesterol - Surgical History Past Surgical History?: No - Social History Smoking Status: Never Smoker Substance Use Type: None - Medications Home Medications: Home Medications Medication Instructions Recorded Confirmed Last Taken Type Aspirin EC [Aspirin Enteric Coated 81 mg PO QDAY #30 tablet.dr 01/26/18 05/27/18 Unknown Rx TAB] Famotidine [Pepcid] 20 mg PO BID #30 tablet 01/26/18 05/27/18 Unknown Rx Losartan 0.5 tab PO DAILY 05/27/18 05/27/18 Unknown History metFORMIN [Glucophage] 500 mg PO BID 05/27/18 05/27/18 Unknown History ED Physical Exam - General Limitations: No Limitations - Other Other exam information: GENERAL: The patient is well-developed well-nourished. HEENT: Normocephalic. Atraumatic. Patient has moist mucous membranes. EYES: Extraocular motions are intact. Pupils are equal and reactive to light bilaterally. NECK: Supple. Trachea is midline. CHEST/LUNGS: Clear to auscultation. There is no respiratory distress noted. HEART/CARDIOVASCULAR: Regular. There is no tachycardia. There is no obvious murmur. ABDOMEN: Abdomen is soft, nontender. Patient has normal bowel sounds. There is no abdominal distention. SKIN: Skin is warm and dry. NEURO: The patient is awake, alert, and oriented. The patient is cooperative. The patient has no focal neurologic deficits. The patient has normal speech. MUSCULOSKELETAL: There is no tenderness or deformity. There is no limitation range of motion. There is no evidence of acute injury. ED Course Vital Signs 05/27/18 05/27/18 05/27/18 21:55 23:01 23:02 Temperature 98.3 F 97.8 F Pulse Rate 115 H 102 H 107 H Respiratory 20 20 15 Rate Blood Pressure 144/81 143/80 Blood Pressure 122/82 [Right] O2 Sat by Pulse 96 97 94 Oximetry 05/27/18 05/27/18 05/28/18 23:15 23:45 00:00 Temperature Pulse Rate 100 H Respiratory 14 15 26 H Rate Blood Pressure 141/94 Blood Pressure [Right] O2 Sat by Pulse 97 Oximetry 05/28/18 05/28/18 00:13 01:00 Temperature Pulse Rate 102 H 94 H Respiratory 17 24 Rate Blood Pressure 141/94 149/74 Blood Pressure [Right] O2 Sat by Pulse 97 96 Oximetry THI score - Thi Score Age > 65: (0) No Aspirin use within the Past 7 Days: (0) No 3 or more CAD Risk Factors: (1) Yes 2 or more Angina events in past 24 hrs: (1) Yes Known CAD with more than 50% Stenosis: (0) No Elevated Cardiac Markers: (0) No ST Deviation Greater than 0.5mm: (0) No THI Score: 2 ED Medical Decision Making - Lab Data Result diagrams: 05/27/18 22:40 05/27/18 22:40 - EKG Data -: EKG Interpreted by Me EKG shows normal: sinus rhythm, axis, intervals, QRS complexes, ST-T waves Rate: normal - EKG Data When compared to previous EKG there are: previous EKG unavailable Interpretation: normal EKG - Radiology Data Radiology results: image reviewed interpreted by me: Chest x-ray does not show any pneumothorax, pleural effusion, pneumonia or obvious focal consolidation. - Medical Decision Making Patient presents to the emergency department with complaint of left sided chest pain with some numbness and paresthesias down the left arm. Chest x-ray does not show any pleural effusions, pneumothorax, pneumonia or focal consolidation. EKG does not show any signs of a slight elevation [place]. First negative troponin but did have an elevated and equivocal d-dimer. Patient has just had a CT an giography of the chest and we are awaiting the results. The patient will be admitted to the hospital for further evaluation of his chest pain and has been accepted for admission by the hospitalist, Dr. Pfeiffer. Critical Care Time: No Critical care attestation.: If time is entered above; I have spent that time in minutes in the direct care of this critically ill patient, excluding procedure time. ED Disposition Clinical Impression: Acute chest pain, Diabetes mellitus, Arm paresthesia, left Disposition: OP ADMIT IP TO THIS HOSP Is pt being admited?: Yes Does the pt Need Aspirin: Yes Condition: Stable Instructions: Chest Pain (ED), Diabetes Mellitus Type 2 in Adults (ED) Time of Disposition: 02:02
[2018-05-28] MEDS ORDERED: BABY ASPIRIN PO ONE (02:02)
--- NOTE | 2018-05-28 02:35 | Cat Scan Report ---
FINAL REPORT PROCEDURE: CT ANGIO CHEST TECHNIQUE: Computerized axial tomographic angiography of the chest and pulmonary arteries was perfor med after the IV injection of iodinated nonionic contrast. The image data was postprocessed using max imum intensity projection (MIP) and 2-dimensional multiplanar reformatted (MPR) techniques. The exami nation is specifically tailored to the evaluation of the pulmonary arteries per clinical request. HISTORY: Short of breath 786.09, chest pain 786.50, CP, elevated dimer COMPARISON: No prior studies are available for comparison. FINDINGS: Heart and pericardium: Normal. Thoracic aorta: There is no thoracic aortic aneurysm or dissection.. Pulmonary vasculature: Normal. No pulmonary emboli. Lymph nodes: No enlarged thoracic lymph nodes. Lungs: The lungs are expanded. There are mild fibrotic changes. There are no acute infiltrates. There is a 7 millimeter noncalcified nodule in the right upper lung on image 65. This could be a granuloma .. Pleural space: There is no pleural effusion or pneumothorax.. Musculoskeletal structures: No significant abnormality. Upper abdominal structures: No significant abnormality. IMPRESSION: There is no pulmonary embolism. There is no thoracic aortic aneurysm or dissection. The lungs are expanded. There are mild fibrotic changes. There are no acute infiltrates. There is a 7 millimeter noncalcified nodule in the right upper lung on image 65. This could be a granuloma.. There is no pleural effusion or pneumothorax. .
[2018-05-28] MEDS ORDERED: TYLENOL PO PRN (03:36)
[2018-05-28] MEDS ORDERED: ZOFRAN IV PRN (03:36)
[2018-05-28] MEDS ORDERED: SODIUM CHLORIDE FLUSH SYRINGE 10 ML IV PRN (03:36)
[2018-05-28] MEDS ORDERED: D50W (25GM) Syringe IV PRN ×2 (03:36→04:58)
--- NOTE | 2018-05-28 03:41 | History and Physical Report ---
History of Present Illness Date of examination: 05/28/18 History of present illness: 47-year-old man with a history of CVA, hypertension, diabetes comes to emergency room with complaint of chest pain located in the left chest. He describes the pain is dull, constant, intensity 5/10, radiating to the left arm and associated with left arm numbness. The pain started 3-4 days ago and has been intubated and has now become constant. He admits it should spread, no nausea vomiting, diaphoresis or palpitation. He had a stress test in January of last year which was negative Review of systems Constitutional: no weight loss, chills, fever Ears, eyes, nose, mouth and throat: no nasal congestion, no nasal discharge, no sinus pressure, no vision change, no red eye. Neck: No neck pain or rigidity. Cardiovascular: + shortness of breath Gastrointestinal: no hematochezia, abdominal pain Genitourinary : no frequency , no hematuria Musculoskeletal: no joint swelling or muscle ache Integumentary: no rash, no pruritis Neurological: no parathesias, no focal weakness Endocrine: no cold or heat intolerance, no polyuria or polydipsia Hematologic/Lymphatic: no easy bruising, no easy bleeding, no gland swelling Allergic/Immunologic: no urticaria, no angioedema. PAST MEDICAL HISTORY: CVA PAST SURGICAL HISTORY: None SOCIAL HISTORY: Denies alcohol, drugs, +tobacco FAMILY HISTORY: Hypertension Medications and Allergies Allergies Allergy/AdvReac Type Severity Reaction Status Date / Time lisinopril Allergy Unknown Verified 05/27/18 23:25 Home Medications Medication Instructions Recorded Confirmed Last Taken Type Aspirin EC [Aspirin Enteric Coated 81 mg PO QDAY #30 tablet. 01/26/18 05/27/18 Unknown Rx TAB] Famotidine [Pepcid] 20 mg PO BID #30 tablet 01/26/18 05/27/18 Unknown Rx Losartan 0.5 tab PO DAILY 05/27/18 05/27/18 Unknown History metFORMIN [Glucophage] 500 mg PO BID 05/27/18 05/27/18 Unknown History Exam - Physical Exam Narrative exam: General Apperance: The patient lying in bed, breathing comfortable HEENT: Normocephalic, atraumatic. Pupils equally round and reactive to light, EOMI, no sclericterus or JVD or thyromegaly or nodule. , no carotid bruit, mucous membranes moist, no exudate or erythema Heart: S1-S2, regular is rhythm Lungs: Clear to auscultation bilaterally, breathing comfortable Abdomen: Positive bowel sounds, soft, nontender, nondistended, no organomegaly Extremities: No edema cyanosis clubbing Skin: no rash, nodule, warm and dry Neuro: cranial nerves 2-12 intact, speech is fluent, motor/sensory intact - Constitutional Vitals: Temp Pulse Resp BP Pulse Ox 97.8 F 97 H 16 142/79 97 05/27/18 23:02 05/28/18 03:00 05/28/18 03:00 05/28/18 03:00 05/28/18 03:00 Results - Labs CBC & Chem 7: 05/27/18 22:40 05/27/18 22:40 Labs: Abnormal lab results 05/27/18 05/27/18 05/27/18 Range/Units 22:40 22:40 22:40 Hgb 15.5 H (11.8-15.2) gm/dl MCV 96 H (84-94) fl MCH 35 H (28-32) pg MCHC 37 H (32-34) % Plt Count 121 L (140-440) K/mm3 Seg Neutrophils % 72.0 H (40.0-70.0) % PT 12.1 L (12.2-14.9) Sec. INR 0.85 L (0.87-1.13) D-Dimer (0-234) ng/mlDDU Sodium 136 L (137-145) mmol/L Glucose 204 H (75-100) mg/dL AST < 5 L (5-40) units/L ALT 66 H (7-56) units/L Albumin 3.8 L (3.9-5) g/dL 05/27/18 Range/Units 23:17 Hgb (11.8-15.2) gm/dl MCV (84-94) fl MCH (28-32) pg MCHC (32-34) % Plt Count (140-440) K/mm3 Seg Neutrophils % (40.0-70.0) % PT (12.2-14.9) Sec. INR (0.87-1.13) D-Dimer 352.15 H (0-234) ng/mlDDU Sodium (137-145) mmol/L Glucose (75-100) mg/dL AST (5-40) units/L ALT (7-56) units/L Albumin (3.9-5) g/dL - Imaging and Cardiology EKG: image reviewed Chest x-ray: report reviewed CT scan - chest: report reviewed Assessment and Plan Assessment Chest pain, rule out ACS Hypertension Diabetes History of CVA Thrombocytopenia Plan Admit medicine Check reticulocyte enzymes, consult cardiology IV morphine, DVT prophylaxis
[2018-05-28] MEDS ORDERED: MORPHINE ONE (06:08)
[2018-05-28] MEDS: MORPHINE IV PRN ×2 (06:09→22:24)
[2018-05-28 06:11] LABS: Basophils # (Auto) 0.1 K/mm3 (0.0-0.1); Basophils % (Auto) 0.9 % (0.0-1.8); Eosinophils # (Auto) 0.2 K/mm3 (0.0-0.4); Eosinophils % (Auto) 3.1 % (0.0-4.3); Hematocrit 41.6 % (35.5-45.6); Hemoglobin 14.4 gm/dl (11.8-15.2); Lymphocytes # (Auto) 1.5 K/mm3 (1.2-5.4); Lymphocytes % (Auto) 20.9 % (13.4-35.0); Mean Corpuscular HGB Conc 35 % (32-34); Mean Corpuscular Volume 97 fl (84-94); Monocytes # (Auto) 0.5 K/mm3 (0.0-0.8); Monocytes % (Auto) 6.8 % (0.0-7.3); Platelet Count 109 K/mm3 (140-440); Red Blood Count 4.29 M/mm3 (3.65-5.03); Red Cell Distribution Width 13.7 % (13.2-15.2)
[2018-05-28 06:51] LABS: BUN/Creatinine Ratio 23; Blood Urea Nitrogen 18 mg/dL (9-20); Calcium 8.6 mg/dL (8.4-10.2); Hemolysis Index 12
[2018-05-28] MEDS ORDERED: HumaLOG SUB-Q ONE (07:59)
[2018-05-28] MEDS: GLUCOPHAGE PO SCH ×2 (08:01→17:17)
[2018-05-28] MEDS: HumaLOG SUB-Q SCH ×4 (08:02→22:24)
[2018-05-28] MEDS ORDERED: GLUCOPHAGE ONE (08:07)
[2018-05-28] MEDS ORDERED: LOVENOX SUB-Q SCH (10:00)
[2018-05-28] MEDS: HABITROL TD SCH (10:51)
[2018-05-28] MEDS: HALFPRIN EC PO SCH (10:52)
[2018-05-28] MEDS: PEPCID PO SCH ×2 (10:52→22:23)
[2018-05-28] MEDS: SODIUM CHLORIDE FLUSH SYRINGE 10 ML IV SCH ×2 (10:58→22:24)
--- NOTE | 2018-05-28 11:31 | Consultation ---
History of Present Illness Consult date: 05/28/18 Requesting physician: DANGELO MURPHY Consult reason: chest pain History of present illness: The pt is a 47-year-old male with a past medical history of multiple prior "mini strokes", DM, tobacco use. 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 His primary care physician is Dr. Pinzon. He presents to the emergency department with a 3-4 day history of left-sided chest pain, shortness of breath and some left arm numbness. The chest pain has been intermittent until the day of admission when it became constant. There are no clear aggravating or alleviating factors associated with his symptoms. His left arm numbness sometimes occurs by itself, not in association with the chest pain. He denies any palpitations, n/v, diaphoresis, dizziness or syncope. Of note, pt underwent lexiscan MPI stress test 01/2018 which was negative, EF 54%. Past History Past Medical History: diabetes, other (TIA) Social history: , smoking Medications and Allergies Allergies Allergy/AdvReac Type Severity Reaction Status Date / Time lisinopril Allergy Unknown Verified 05/27/18 23:25 Home Medications Medication Instructions Recorded Confirmed Last Taken Type Aspirin EC [Aspirin Enteric Coated 81 mg PO QDAY #30 tablet. 01/26/18 05/27/18 Unknown Rx TAB] Famotidine [Pepcid] 20 mg PO BID #30 tablet 01/26/18 05/27/18 Unknown Rx Losartan 0.5 tab PO DAILY 05/27/18 05/27/18 Unknown History metFORMIN [Glucophage] 500 mg PO BID 05/27/18 05/27/18 Unknown History Active Meds: Active Medications Acetaminophen (Tylenol) 650 mg PO Q4H PRN PRN Reason: Pain MILD(1-3)/Fever >100.5/ZHU Aspirin (Halfprin Ec) 81 mg PO QDAY ON LICENSE OF [facility] Last Admin: 05/28/18 10:52 Dose: 81 mg Documented by: Dextrose (D50w (25gm) Syringe) 50 ml IV PRN PRN PRN Reason: Hypoglycemia Famotidine (Pepcid) 20 mg PO BID ON LICENSE OF [facility] Last Admin: 05/28/18 10:52 Dose: 20 mg Documented by: Insulin Human Lispro (Humalog) 0 unit SUB-Q [facility] ON LICENSE OF [facility]; Protocol Last Admin: 05/28/18 08:02 Dose: 6 unit Documented by: Metformin HCl (Glucophage) 500 mg PO BIDDIAB ON LICENSE OF [facility] Last Admin: 05/28/18 08:01 Dose: 500 mg Documented by: Morphine Sulfate (Morphine) 2 mg IV Q4H PRN PRN Reason: Pain, Moderate (4-6) Last Admin: 05/28/18 06:09 Dose: 2 mg Documented by: Nicotine (Habitrol) 21 mg TD QDAY ON LICENSE OF [facility] Last Admin: 05/28/18 10:51 Dose: 21 mg Documented by: Ondansetron HCl (Zofran) 4 mg IV Q8H PRN PRN Reason: Nausea And Vomiting Sodium Chloride (Sodium Chloride Flush Syringe 10 Ml) 10 ml IV BID ON LICENSE OF [facility] Last Admin: 05/28/18 10:58 Dose: 10 ml Documented by: Sodium Chloride (Sodium Chloride Flush Syringe 10 Ml) 10 ml IV PRN PRN PRN Reason: LINE FLUSH Review of Systems Constitutional: no weight loss, no weight gain, no fever, no chills, no sweats Ears, nose, mouth and throat: no ear pain, no nose pain, no sinus pressure, no sinus pain Cardiovascular: chest pain, shortness of breath, no orthopnea, no palpitations, no rapid/irregular heart beat, no edema, no syncope, no lightheadedness, no dyspnea on exertion, no high blood pressure Respiratory: no cough, no congestion, no wheezing, no pain on inspiration Gastrointestinal: no abdominal pain, no nausea, no vomiting, no diarrhea, no constipation, no change in bowel habits Genitourinary Male: no dysuria, no hematuria, no flank pain, no discharge, no urinary frequency, no urinary hesitancy Musculoskeletal: no neck stiffness, no neck pain, no shooting arm pain, no arm numbness/tingling, no low back pain, no shooting leg pain Integumentary: no rash, no pruritis, no redness, no sores, no wounds Neurological: numbness (LUE), no head injury, no paralysis, no weakness, no parathesias, no tingling, no seizures Psychiatric: no anxiety Endocrine: no cold intolerance, no heat intolerance Hematologic/Lymphatic: no easy bruising, no easy bleeding Allergic/Immunologic: no urticaria, no wheezing Physical Examination Vital Signs Temp Pulse Resp BP Pulse Ox 98.3 F 115 H 20 144/81 96 05/27/18 21:55 05/27/18 21:55 05/27/18 21:55 05/27/18 21:55 05/27/18 21:55 General appearance: no acute distress HEENT: Positive: PERRL, Normocephaly, Mucus Membranes Moist Neck: Positive: neck supple, trachea midline Cardiac: Positive: Reg Rate and Rhythm, S1/S2 Lungs: Positive: clear to auscultation Neuro: Positive: Grossly Intact Abdomen: Positive: Soft. Negative: Tender Skin: Negative: Rash, Wound Musculoskeletal: No Pain Extremities: Absent: edema Results 05/28/18 05:49 05/28/18 05:49 Cardiac Enzymes 05/27/18 Range/Units 22:40 AST < 5 L (5-40) units/L Coagulation 05/27/18 Range/Units 22:40 PT 12.1 L (12.2-14.9) Sec. INR 0.85 L (0.87-1.13) APTT 29.7 (24.2-36.6) Sec. CBC 05/27/18 05/28/18 Range/Units 22:40 05:49 WBC 8.6 7.3 (4.5-11.0) K/mm3 RBC 4.42 4.29 (3.65-5.03) M/mm3 Hgb 15.5 H 14.4 (11.8-15.2) gm/dl Hct 42.5 41.6 (35.5-45.6) % Plt Count 121 L 109 L (140-440) K/mm3 Lymph # 1.7 1.5 (1.2-5.4) K/mm3 [place] # 0.5 0.5 (0.0-0.8) K/mm3 Eos # 0.2 0.2 (0.0-0.4) K/mm3 Baso # 0.0 0.1 (0.0-0.1) K/mm3 Comprehensive Metabolic Panel 05/27/18 05/28/18 Range/Units 22:40 05:49 Sodium 136 L 134 L (137-145) mmol/L Potassium 4.0 4.2 (3.6-5.0) mmol/L Chloride 100.3 99.8 (98-107) mmol/L Carbon Dioxide 23 21 L (22-30) mmol/L BUN 18 18 (9-20) mg/dL Creatinine 1.2 0.8 (0.8-1.5) mg/dL Glucose 204 H 261 H (75-100) mg/dL Calcium 8.9 8.6 (8.4-10.2) mg/dL AST < 5 L (5-40) units/L ALT 66 H (7-56) units/L Alkaline Phosphatase 99 (35-129) units/L Total Protein 6.6 (6.3-8.2) g/dL Albumin 3.8 L (3.9-5) g/dL - Imaging and Cardiology Echo: pending EKG: report reviewed, image reviewed EKG interpretations - Telemetry EKG Rhythm: Sinus Rhythm - EKG Sinus rhythms and dysrhythmias: sinus rhythm Assessment and Plan DDimer elevated - chest CTA negative for PE, aneurysm or dissection. Chest CTA significant for 7mm noncalcified nodule in right upper lung, further eval/management per primary. Pt underwent lexiscan MPI stress test 01/2018 which was negative, EF 54%. However, in setting of recurrent chest pain and risk factors for CAD, cardiac CTA is recommended. Pt underwent chest CTA this AM and thus will plan to perform cardiac CTA on Monday, 05/30. Initiate Lopressor for HR optimization. F/u echo. The patient has been seen in conjunction with Dr. Temple who agrees with the assessment and plan of care. - Patient Problems (1) Chest pain Current Visit: Yes Status: Acute Qualifiers: Chest pain type: unspecified Qualified Code(s): R07.9 - Chest pain, unspecified (2) LUE numbness Current Visit: Yes Status: Acute (3) History of TIA (transient ischemic attack) Current Visit: Yes Status: Chronic (4) Diabetes mellitus Current Visit: Yes Status: Chronic (5) Pulmonary nodule Current Visit: Yes Status: Chronic (6) Tobacco use Current Visit: Yes Status: Chronic
--- NOTE | 2018-05-28 17:44 | Event Note ---
Date: 05/28/18 Patient was seen and evaluated this morning, hence chest pain is getting better. Patient admitted earlier this morning, patient was evaluated by cardiology recommended to have cardiac CT on Monday. Continue management for H&P.
[2018-05-28] MEDS: LOPRESSOR PO SCH (22:23)
[2018-05-29 06:20] LABS: Chol/HDL Ratio 4.91 %
[2018-05-29] MEDS: GLUCOPHAGE PO SCH ×2 (08:58→17:55)
[2018-05-29] MEDS: HumaLOG SUB-Q SCH ×4 (08:58→23:20)
--- NOTE | 2018-05-29 10:55 | Progress Note ---
Assessment and Plan DDimer elevated - chest CTA negative for PE, aneurysm or dissection. Chest CTA significant for 7mm noncalcified nodule in right upper lung, further eval/management per primary. Pt underwent lexiscan MPI stress test 01/2018 which was negative, EF 54%. However, in setting of recurrent chest pain and risk factors for CAD, cardiac CTA is recommended. Will plan to proceed with CCTA in AM. NPO after MN. Optimize HR - increase lopressor to TID. The patient has been seen in conjunction with Dr. Temple who agrees with the assessment and plan of care. - Patient Problems (1) Chest pain Current Visit: Yes Status: Acute Qualifiers: Chest pain type: unspecified Qualified Code(s): R07.9 - Chest pain, unspecified (2) LUE numbness Current Visit: Yes Status: Acute (3) History of TIA (transient ischemic attack) Current Visit: Yes Status: Chronic (4) Diabetes mellitus Current Visit: Yes Status: Chronic (5) Pulmonary nodule Current Visit: Yes Status: Chronic (6) Dyslipidemia Current Visit: Yes Status: Chronic (7) Tobacco use Current Visit: Yes Status: Chronic Subjective Date of service: 05/29/18 Principal diagnosis: cp Interval history: pt resting in bed, no current cardiac complaints. Objective Last Vital Signs Temp 97.7 F 05/29/18 08:22 Pulse 89 05/29/18 03:07 Resp 18 05/29/18 08:22 BP 127/83 05/29/18 08:22 Pulse Ox 97 05/29/18 09:04 - Physical Examination General: No Apparent Distress HEENT: Positive: PERRL, Normocephaly, Mucus Membranes Moist Neck: Positive: neck supple, trachea midline Cardiac: Positive: Reg Rate and Rhythm, S1/S2 Lungs: Positive: clear to auscultation Neuro: Positive: Grossly Intact Abdomen: Positive: Soft. Negative: Tender Skin: Negative: Rash, Wound Musculoskeletal: No Pain Extremities: Absent: edema - Labs and Meds Lipids 05/29/18 Range/Units 05:30 Triglycerides 251 H (2-149) mg/dL Cholesterol 167 (50-199) mg/dL HDL Cholesterol 34 L (40-59) mg/dL Cholesterol/HDL Ratio 4.91 % - Imaging and Cardiology EKG: report reviewed, image reviewed Echo: report reviewed (EF 55-60%) - Telemetry EKG Rhythm: Sinus Rhythm - EKG Sinus rhythms and dysrhythmias: sinus rhythm
[2018-05-29] MEDS: HALFPRIN EC PO SCH (11:31)
[2018-05-29] MEDS: PEPCID PO SCH ×2 (11:31→23:19)
[2018-05-29] MEDS: HABITROL TD SCH (11:31)
[2018-05-29] MEDS: LOPRESSOR PO SCH ×2 (15:49→23:19)
--- NOTE | 2018-05-29 18:30 | Progress Note ---
Assessment and Plan Assessment and plan: Chest pain, recurrent -Patient had a stress test recently recently which were normal -Echo was done which was normal -CTA was negative for PE, cardiology recommended to do cardiac CTA tomorrow History of CVA - Continue atorvastatin and aspirin Diabetes mellitus with hyperglycemia - Sliding scale insulin and 20 units glargine daily at bedtime - Accu-Chek, ADA diet, adjust insulin as needed DVT prophylaxis - Patient is on SCD Disposition - Will be decided tomorrow after cardiac CTA History Interval history: Patient was seen and evaluated this morning, patient's said chest pain subsided. Hospitalist Physical - Physical exam Narrative exam: Not in cardiopulmonary distress. The patient is obese. Vital signs as documented. Head exam is unremarkable. No scleral icterus . Neck is without jugular venous distension, thyromegaly, or carotid bruits. Lungs are clear to auscultation. Cardiac exam reveals regular rate and Rhythm. First and second heart sounds normal. No murmurs, rubs or gallops. Abdominal exam reveals normal bowel sounds, no masses, no organomegaly and no aortic enlargement. Extremities are nonedematous and both femoral and pedal pulses are normal. 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 No focal weakness. - Constitutional Vitals: Temp Pulse Resp BP Pulse Ox 97.8 F 89 18 127/86 97 05/29/18 16:11 05/29/18 03:07 05/29/18 16:11 05/29/18 16:11 05/29/18 09:04 General appearance: Present: no acute distress Results - Labs CBC & Chem 7: 05/28/18 05:49 05/28/18 05:49 Labs: Laboratory Last Values WBC 7.3 K/mm3 (4.5-11.0) 05/28/18 05:49 RBC 4.29 M/mm3 (3.65-5.03) 05/28/18 05:49 Hgb 14.4 gm/dl (11.8-15.2) 05/28/18 05:49 Hct 41.6 % (35.5-45.6) 05/28/18 05:49 MCV 97 fl (84-94) H 05/28/18 05:49 MCH 34 pg (28-32) H 05/28/18 05:49 MCHC 35 % (32-34) H 05/28/18 05:49 RDW 13.7 % (13.2-15.2) 05/28/18 05:49 Plt Count 109 K/mm3 (140-440) L 05/28/18 05:49 Lymph % (Auto) 20.9 % (13.4-35.0) 05/28/18 05:49 [place] % (Auto) 6.8 % (0.0-7.3) 05/28/18 05:49 Eos % (Auto) 3.1 % (0.0-4.3) 05/28/18 05:49 Baso % (Auto) 0.9 % (0.0-1.8) 05/28/18 05:49 Lymph # 1.5 K/mm3 (1.2-5.4) 05/28/18 05:49 [place] # 0.5 K/mm3 (0.0-0.8) 05/28/18 05:49 Eos # 0.2 K/mm3 (0.0-0.4) 05/28/18 05:49 Baso # 0.1 K/mm3 (0.0-0.1) 05/28/18 05:49 Seg Neutrophils % 68.3 % (40.0-70.0) 05/28/18 05:49 Seg Neutrophils # 5.0 K/mm3 (1.8-7.7) 05/28/18 05:49 PT 12.1 Sec. (12.2-14.9) L 05/27/18 22:40 INR 0.85 (0.87-1.13) L 05/27/18 22:40 APTT 29.7 Sec. (24.2-36.6) 05/27/18 22:40 D-Dimer 352.15 ng/mlDDU (0-234) H 05/27/18 23:17 Sodium 134 mmol/L (137-145) L 05/28/18 05:49 Potassium 4.2 mmol/L (3.6-5.0) 05/28/18 05:49 Chloride 99.8 mmol/L (98-107) 05/28/18 05:49 Carbon Dioxide 21 mmol/L (22-30) L 05/28/18 05:49 Anion Gap 17 mmol/L 05/28/18 05:49 BUN 18 mg/dL (9-20) 05/28/18 05:49 Creatinine 0.8 mg/dL (0.8-1.5) 05/28/18 05:49 Estimated GFR > 60 ml/min 05/28/18 05:49 BUN/Creatinine Ratio 23 % 05/28/18 05:49 Glucose 261 mg/dL (75-100) H 05/28/18 05:49 POC Glucose 237 (70-105) H 05/29/18 17:06 Calcium 8.6 mg/dL (8.4-10.2) 05/28/18 05:49 Total Bilirubin 0.30 mg/dL (0.1-1.2) 05/27/18 22:40 AST < 5 units/L (5-40) L 05/27/18 22:40 ALT 66 units/L (7-56) H 05/27/18 22:40 Alkaline Phosphatase 99 units/L (35-129) 05/27/18 22:40 Troponin T < 0.010 ng/mL (0.00-0.029) 05/28/18 01:08 NT-Pro-B Natriuret Pep 6.28 pg/mL (0-450) 05/27/18 23:17 Total Protein 6.6 g/dL (6.3-8.2) 05/27/18 22:40 Albumin 3.8 g/dL (3.9-5) L 05/27/18 22:40 Albumin/Globulin Ratio 1.4 % 05/27/18 22:40 Triglycerides 251 mg/dL (2-149) H 05/29/18 05:30 Cholesterol 167 mg/dL (50-199) 05/29/18 05:30 LDL Cholesterol Direct 114 mg/dL (50-130) 05/29/18 05:30 HDL Cholesterol 34 mg/dL (40-59) L 05/29/18 05:30 Cholesterol/HDL Ratio 4.91 % 05/29/18 05:30
[2018-05-29] MEDS ORDERED: LANTUS SUB-Q SCH (22:00)
[2018-05-29] MEDS: SODIUM CHLORIDE FLUSH SYRINGE 10 ML IV SCH ×2 (23:21)
[2018-05-30] MEDS: LOPRESSOR PO SCH ×3 (00:29→14:13)
[2018-05-30 06:04] LABS: INR 0.88 (0.87-1.13); Partial Thromboplastin Time 31.9 Sec. (24.2-36.6)
[2018-05-30 06:17] LABS: BUN/Creatinine Ratio 23; Blood Urea Nitrogen 14 mg/dL (9-20); Calcium 8.9 mg/dL (8.4-10.2); Hemolysis Index 18
[2018-05-30] MEDS: GLUCOPHAGE PO SCH ×2 (08:13→19:13)
[2018-05-30] MEDS: HumaLOG SUB-Q SCH ×3 (08:54→19:12)
[2018-05-30] MEDS ORDERED: NACL 0.9% 500 ML 500 ML IV SCH ×2 (10:00→12:00)
--- NOTE | 2018-05-30 10:58 | Progress Note ---
Assessment and Plan Unable to optimize HR for CCTA. LHC recommended for definitive diagnosis. Indications, potential risks and benefits of LHC reviewed with pt and he is agreeable to proceed with LHC today. Await findings. The patient has been seen in conjunction with Dr. Temple who agrees with the assessment and plan of care. - Patient Problems (1) Chest pain Current Visit: Yes Status: Acute Qualifiers: Chest pain type: unspecified Qualified Code(s): R07.9 - Chest pain, unspecified (2) LUE numbness Current Visit: Yes Status: Acute (3) History of TIA (transient ischemic attack) Current Visit: Yes Status: Chronic (4) Diabetes mellitus Current Visit: Yes Status: Chronic (5) Pulmonary nodule Current Visit: Yes Status: Chronic (6) Dyslipidemia Current Visit: Yes Status: Chronic (7) Tobacco use Current Visit: Yes Status: Chronic Subjective Date of service: 05/30/18 Principal diagnosis: cp Interval history: pt resting in bed, no current cardiac complaints. in SR on tele with HR 80s. Objective Last Vital Signs Temp 98.1 F 05/30/18 04:21 Pulse 80 05/30/18 08:34 Resp 20 05/30/18 04:21 BP 120/76 05/30/18 08:34 Pulse Ox 95 05/30/18 04:21 - Physical Examination General: No Apparent Distress HEENT: Positive: PERRL, Normocephaly, Mucus Membranes Moist Neck: Positive: neck supple, trachea midline Cardiac: Positive: Reg Rate and Rhythm, S1/S2 Lungs: Positive: Decreased Breath Sounds Neuro: Positive: Grossly Intact Abdomen: Positive: Soft. Negative: Tender Skin: Negative: Rash, Wound Musculoskeletal: No Pain Extremities: Absent: edema - Labs and Meds Coagulation 05/30/18 Range/Units 05:02 PT 12.5 (12.2-14.9) Sec. INR 0.88 (0.87-1.13) APTT 31.9 (24.2-36.6) Sec. Comprehensive Metabolic Panel 05/30/18 Range/Units 05:02 Sodium 133 L (137-145) mmol/L Potassium 4.1 (3.6-5.0) mmol/L Chloride 96.2 L (98-107) mmol/L Carbon Dioxide 24 (22-30) mmol/L BUN 14 (9-20) mg/dL Creatinine 0.6 L (0.8-1.5) mg/dL Glucose 251 H (75-100) mg/dL Calcium 8.9 (8.4-10.2) mg/dL - Imaging and Cardiology EKG: report reviewed, image reviewed Echo: report reviewed (EF 55-60%) - EKG Sinus rhythms and dysrhythmias: sinus rhythm
[2018-05-30 11:30] LABS: INR 0.9 (0.87-1.13)
[2018-05-30] MEDS ORDERED: HALFPRIN EC PO ONE (11:56)
[2018-05-30] MEDS: HALFPRIN EC PO SCH (11:58)
[2018-05-30] MEDS ORDERED: HEPARIN/NS 5000 UNIT/500ML(CATH LAB) 1,000 ML IR ONE (12:08)
[2018-05-30] MEDS ORDERED: CALAN ONE (12:08)
[2018-05-30] MEDS ORDERED: VERSED ONE (12:08)
[2018-05-30] MEDS ORDERED: SUBLIMAZE ONE (12:08)
[2018-05-30] MEDS ORDERED: HEPARIN 10,000 UNITS/10 ML ONE (12:08)
[2018-05-30] MEDS ORDERED: NITROGLYCERIN SYRINGE 0 ML ONE (12:09)
[2018-05-30] MEDS ORDERED: XYLOCAINE 2% INFILTRATI ONE (12:09)
--- NOTE | 2018-05-30 13:50 | Cardiac Catherization Report ---
LEFT HEART CATHETERIZATION CLINICAL INFORMATION: The patient is a 47-year-old white gentleman with history of recurrent chest pains, negative stress thallium in the past, admitted multiple times to the hospital with chest pain. Presently, cardiac catheterization is being performed for diagnostic and prognostic purposes. His EKG and cardiac enzymes have been unremarkable. The patient was brought to the catheterization laboratory in a fasting condition to the patient, informed consent was obtained. The patient is explained of the procedure, potential complications and alternatives of therapy available. DESCRIPTION OF PROCEDURE: The patient was brought to the catheterization laboratory in a fasting condition. The right wrist area and forearm thoroughly cleansed with Betadine solution. The patient was evaluated for moderate sedation and was found to be an appropriate candidate and the patient was sedated with IV Versed and fentanyl. Subsequently, right radial artery puncture was made using 21-gauge arterial puncture needle after giving local anesthesia. A 5-[place] radial sheath was inserted into the radial artery and received 5 mg of intra-arterial verapamil and 3000 units of intravenous heparin. Subsequently, using 5-[place] multipurpose catheter. Left angiogram shows the left coronary artery, right coronary artery and left ventriculogram done in HIGH projection showed normal size left ventricle with normal contractility. Left ventriculogram was performed using hand injection. Subsequently, catheter and sheath were removed. The patient was monitored throughout with hemodynamic monitoring, pulse oximetry and EKG monitoring. The patient tolerated the sedation well. At the end of the procedure, the patient was talking normally and breathing without any difficulty. Sedation was started at 10:30 noon time on and ended at 12:44 noon time. No untoward complications were noted. Following findings were noted. HEMODYNAMICS: 1. Opening aortic pressure 112/57, left ventricular pressure 115/19, no gradient across the aortic valve. Estimated ejection fraction 50-55%. 2. Left ventriculogram done in HIGH projection showed normal size left ventricle with normal contractility. Mitral regurgitation could not be evaluated because of limited amount of dye injected. 3. Left coronary artery arises normally from to the left coronary cusp. Left main is relatively short. LAD is a relatively small vessel, not reaching the apex. Left main, LAD, and its branches and circumflex artery and its branch are angiographically smooth and normal. 4. Right coronary artery arising normally from right coronary cusp. A large dominant vessel supplies the apex. Angiographically smooth and normal. FINAL IMPRESSION: 1. Normal sized left ventricle with normal contractility. End-diastolic pressure upper limits of normal to mildly elevated. 2. Essentially normal coronary anatomy. 3. The patient tolerated IV sedation well without any side effects. 4. Right radial artery was used for access and hemostasis will be achieved by applying right radial band. The patient was transferred to the room in stable condition. The patient was explained of the findings. The patient will be continued on risk factor modification. At this time, etiology of the chest pain is not clear. JOB# [id number] LUZ MARINA/ROSEMAYR
--- NOTE | 2018-05-30 14:07 | Discharge Summary ---
Providers - Providers Date of Admission: 05/28/18 05:53 Attending physician: MUSHTAQ TORREZ MD 05/28/18 03:36 Consult to Physician [CONS] Routine Comment: Consulting Provider: DEVI CLINTON Physician Instructions: Reason For Exam: cp Primary care physician: MASSAGE COORDINATOR Hospitalization Reason for admission: Chest pain Condition: Stable Pertinent studies: CXR IMPRESSION: There is no acute cardiopulmonary abnormality CTA chest negative for PE Cardiac cath; clean coronaries Hospital course: 47-year-old man with a history of CVA, hypertension, diabetes comes to emergency room with complaint of chest pain located in the left chest. He describes the pain is dull, constant, intensity 5/10, radiating to the left arm and associated with left arm numbness. The pain started 3-4 days ago and has been intubated and has now become constant. He admits it should spread, no nausea vomiting, diaphoresis or palpitation. He had a stress test in January of last year which was negative. Patient was admitted to the floor, cardiac enzymes are negative, EKG normal sinus rhythm, CTA chest was negative for PE. Cardiology consulted and did cardiac cath which showed clean coronaries. Cardiology cleared the patient for discharge. Patient's chest pain subsided. Patient is hemodynamically stable at the time of discharge. Patient was counseled to quit smoking. Patient's questions and concerns were addressed to the bedside. Disposition: DC-01 TO HOME OR SELFCARE Time spent for discharge: 32 minutes - Discharge Diagnoses (1) Acute chest pain Status: Acute (2) Arm paresthesia, left Status: Acute (3) Diabetes mellitus Status: Chronic (4) Dyslipidemia Status: Chronic (5) History of TIA (transient ischemic attack) Status: Chronic (6) Pulmonary nodule Status: Chronic (7) Hyperglycemia Status: Acute Core Measure Documentation - Palliative Care Palliative Care/ Comfort Measures: Not Applicable - Core Measures Any of the following diagnoses?: none Exam - Physical Exam Narrative exam: Not in cardiopulmonary distress. The patient is obese. Vital signs as documented. Head exam is unremarkable. No scleral icterus . Neck is without jugular venous distension, thyromegaly, or carotid bruits. Lungs are clear to auscultation. Cardiac exam reveals regular rate and Rhythm. First and second heart sounds normal. No murmurs, rubs or gallops. Abdominal exam reveals normal bowel sounds, no masses, no organomegaly and no aortic enlargement. Extremities are nonedematous and both femoral and pedal pulses are normal. 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 No focal weakness. - Constitutional Vitals: Temp Pulse Resp BP Pulse Ox 97.6 F 84 16 119/79 94 05/30/18 13:38 05/30/18 13:38 05/30/18 13:38 05/30/18 13:38 05/30/18 13:38 Plan Activity: no restrictions Diet: low salt, diabetic Follow up with: JALIL LOAIZA MD [Staff Physician] - 3-5 Days Forms: Work/School Release Form
--- NOTE | 2018-05-30 14:12 | Event Note ---
Date: 05/30/18 S/p [facility] today which showed normal coronaries. Pt may discharge home from cardiology standpoint on home cardiac regimen following completion of post-cath order set. Shania SEVERINO NP / DR. LOPEZ
[2018-05-30] MEDS: PEPCID PO SCH (15:10)
[2018-05-30] MEDS: HABITROL TD SCH (15:11)
[2018-05-30] MEDS: SODIUM CHLORIDE FLUSH SYRINGE 10 ML IV SCH (15:12)
[2018-05-30 17:14] VITALS: BP 117/74
== END 2018-05-30 19:34 | disposition home or self-care (01) | DRG 206 ==
LOC: ED 21:36 → 4A 05-28 05:53
PROVIDERS: ADMIT Internal Medicine; ATTEND Internal Medicine
PROC: 4A023N7 Measurement of Cardiac Sampling and Pressure, Left Heart, Percutaneous Approach (ICD-10-PCS; principal; 2018-05-30)
PROC: B2111ZZ Fluoroscopy of Multiple Coronary Arteries using Low Osmolar Contrast (ICD-10-PCS; 2018-05-30)
PROC: B2151ZZ Fluoroscopy of Left Heart using Low Osmolar Contrast (ICD-10-PCS; 2018-05-30)
DX: M94.0 Chondrocostal junction syndrome [Tietze] (principal); R07.89 Other chest pain; E11.65 Type 2 diabetes mellitus with hyperglycemia; D69.6 Thrombocytopenia, unspecified; I10 Essential (primary) hypertension; E78.5 Hyperlipidemia, unspecified; R91.1 Solitary pulmonary nodule; Z86.73 Personal history of transient ischemic attack (TIA), and cerebral infarction without residual deficits; Z82.49 Family history of ischemic heart disease and other diseases of the circulatory system; Z79.82 Long term (current) use of aspirin; Z79.84 Long term (current) use of oral hypoglycemic drugs; Z79.899 Other long term (current) drug therapy; Z88.8 Allergy status to other drugs, medicaments and biological substances
CPT/HCPCS: 36415; 71046; 71275; 80048; 80053; 80061; 82962; 83880; 84484; 85025; 85379; 85610; 85730; 93005; 93010; 93306; 93458; G0378; A9270-GY; C1894; J1644; J1815; J2250; J2270; J3010; J7030; J7040; Q9967

== ENCOUNTER 2018-06-22 11:59 | Outpatient (CLI) | payer OTHER ==
[2018-06-22 12:48] LABS: Hematocrit 45.8 % (35.5-45.6); Hemoglobin 15.8 gm/dl (11.8-15.2); Mean Corpuscular HGB Conc 35 % (32-34); Mean Corpuscular Volume 97 fl (84-94); Platelet Count 131 K/mm3 (140-440); Red Blood Count 4.73 M/mm3 (3.65-5.03); Red Cell Distribution Width 13.4 % (13.2-15.2)
[2018-06-22 12:58] LABS: Alanine Aminotransferase 38 units/L (7-56); Albumin 4.6 g/dL (3.9-5); BUN/Creatinine Ratio 14; Blood Urea Nitrogen 11 mg/dL (9-20); Calcium 9.4 mg/dL (8.4-10.2); Chol/HDL Ratio 4.21 %; HDL Cholesterol 33 mg/dL (40-59); Hemolysis Index 10; LDL Cholesterol,Direct 85 mg/dL (50-130)
[2018-06-22 13:29] LABS: Hepatitis B Surface Antigen Non-Reactive (Negative); Hepatitis C Virus Antibody Non-Reactive (NonReactive)
== END 2018-06-22 12:00 | disposition home or self-care (01) ==
LOC: LAB 11:59
PROVIDERS: ATTEND Internal Medicine
DX: Z00.01 Encounter for general adult medical examination with abnormal findings (principal); E78.5 Hyperlipidemia, unspecified; R74.0 Nonspecific elevation of levels of transaminase and lactic acid dehydrogenase [LDH]; E11.69 Type 2 diabetes mellitus with other specified complication; F17.200 Nicotine dependence, unspecified, uncomplicated
CPT/HCPCS: 36415; 80053; 80061; 80074; 82306; 82607; 83036; 84443; 85027

== ENCOUNTER 2018-10-08 09:43 | Outpatient (CLI) | payer OTHER ==
[2018-10-11 14:21] LABS: Vitamin D, 25-OH, D2 <4 ng/mL
== END 2018-10-08 09:44 | disposition home or self-care (01) ==
LOC: LAB 09:43
PROVIDERS: ATTEND Internal Medicine
DX: E11.65 Type 2 diabetes mellitus with hyperglycemia (principal); E55.9 Vitamin D deficiency, unspecified; E78.00 Pure hypercholesterolemia, unspecified; I10 Essential (primary) hypertension
CPT/HCPCS: 36415; 82306; 83036

== ENCOUNTER 2019-01-14 11:16 | Emergency (ER) | payer OTHER ==
[2019-01-14 11:36] VITALS: BP 139/87
--- NOTE | 2019-01-14 11:37 | Event Note ---
ED Screening Note Date of service: 01/14/19 Time: 11:35 ED Screening Note: This is a 48 y.o. M. that presents to the ER with cough and chest discomfort x 4 days. Current smoker PMH HTN, HLD, DM2 This initial assessment/diagnostic orders/clinical plan/treatment(s) is/are subject to change based on patients health status, clinical progression and re- assessment by fellow clinical providers in the ED. Further treatment and workup at subsequent clinical providers discretion. Patient/guardian urged not to elope from the ED as their condition may be serious if not clinically assessed and managed. Initial orders include: CXR
--- NOTE | 2019-01-14 11:49 | Emergency Department Report ---
- General Chief Complaint: Upper Respiratory Infection Stated Complaint: CONSTANT COUGH Time Seen by Provider: 01/14/19 11:35 Source: patient Mode of arrival: Ambulatory Limitations: No Limitations - History of Present Illness Initial Comments: Patient is 48 years old male with history of diabetes. Patient presented to the ER complaining of cough, productive with greenish sputum for the last 5 days. Patient also stated that he is having chest pain when he cough. He describes his pain as sharp with no radiation. Patient denied any shortness of breath, lower extremity swelling, fever or chills. MD Complaint: cough (productive with greenish sputum) -: days(s) (5) Severity: moderate Context: sick contacts - Related Data Home Medications Medication Instructions Recorded Confirmed Last Taken Losartan 0.5 tab PO DAILY 05/27/18 05/27/18 Unknown metFORMIN [Glucophage] 500 mg PO BID 05/27/18 05/27/18 Unknown Previous Rx's Medication Instructions Recorded Last Taken Type Aspirin EC [Halfprin EC] 81 mg PO QDAY #30 tablet. 01/26/18 Unknown Rx Famotidine [Pepcid] 20 mg PO BID #30 tablet 01/26/18 Unknown Rx Allergies Allergy/AdvReac Type Severity Reaction Status Date / Time lisinopril Allergy Unknown Verified 05/27/18 23:25 ED Review of Systems ROS: Stated complaint: CONSTANT COUGH Other details as noted in HPI Comment: All other systems reviewed and negative Constitutional: denies: chills, fever Respiratory: cough. denies: orthopnea, shortness of breath, SOB with exertion, SOB at rest, stridor, wheezing Cardiovascular: denies: chest pain, palpitations Gastrointestinal: denies: abdominal pain, nausea, vomiting, diarrhea, constipation, hematemesis, melena, hematochezia ED Past Medical Hx - Past Medical History Previous Medical History?: Yes Hx Hypertension: Yes Hx Congestive Heart Failure: No Hx Diabetes: Yes Hx Asthma: No Hx COPD: No Additional medical history: TIA 05/27/16, High Cholesterol - Surgical History Past Surgical History?: No - Social History Smoking Status: Current Every Day Smoker Substance Use Type: None - Medications Home Medications: Home Medications Medication Instructions Recorded Confirmed Last Taken Type Aspirin EC [Halfprin EC] 81 mg PO QDAY #30 tablet. 01/26/18 05/27/18 Unknown Rx Famotidine [Pepcid] 20 mg PO BID #30 tablet 01/26/18 05/27/18 Unknown Rx Losartan 0.5 tab PO DAILY 05/27/18 05/27/18 Unknown History metFORMIN [Glucophage] 500 mg PO BID 05/27/18 05/27/18 Unknown History ED Physical Exam - General Limitations: No Limitations General appearance: alert, in no apparent distress - Head Head exam: Present: atraumatic, normocephalic, normal inspection - Eye Eye exam: Present: normal appearance, PERRL - ENT ENT exam: Present: normal exam, normal orophraynx, mucous membranes moist - Neck Neck exam: Present: normal inspection, full ROM. Absent: tenderness, meningismus, lymphadenopathy, thyromegaly - Respiratory Respiratory exam: Present: normal lung sounds bilaterally - Cardiovascular Cardiovascular Exam: Present: regular rate, normal rhythm, normal heart sounds - GI/Abdominal GI/Abdominal exam: Present: soft, normal bowel sounds. Absent: distended, tenderness, guarding, rebound, rigid - Extremities Exam Extremities exam: Present: normal inspection, normal capillary refill. Absent: pedal edema, calf tenderness - Back Exam Back exam: Present: normal inspection, full ROM. Absent: CVA tenderness (R), CVA tenderness (L) - Neurological Exam Neurological exam: Present: alert, oriented X3, CN II-XII intact - Skin Skin exam: Present: warm, intact, normal color ED Course Vital Signs 01/14/19 01/14/19 11:34 11:41 Temperature 98.8 F Pulse Rate 104 H Respiratory 20 17 Rate Blood Pressure 139/87 O2 Sat by Pulse 96 Oximetry ED Medical Decision Making - Radiology Data Radiology results: report reviewed Chest x-ray is unremarkable. - Medical Decision Making Patient is 48 years old male with history of diabetes. Patient presented to the ER complaining of cough, productive with greenish sputum for the last 5 days. Patient also stated that he is having chest pain when he cough. He describes his pain as sharp with no radiation. Patient denied any shortness of breath, lower extremity swelling, fever or chills. Patient chest pain is atypical and consistent with acute bronchitis. Chest x- ray is unremarkable. Patient had a negative cardiac cath with clean coronary arteries in May 2018. She was strongly advised to follow-up with his primary care physician and to return to the ER if symptoms are not improved. Critical care attestation.: If time is entered above; I have spent that time in minutes in the direct care of this critically ill patient, excluding procedure time. ED Disposition Clinical Impression: Acute bronchitis Disposition: DC-01 TO HOME OR SELFCARE Is pt being admited?: No Condition: Stable Instructions: Acute Bronchitis (ED) Referrals: ISATU CASANOVA MD [Primary Care Provider] - 3-5 Days
--- NOTE | 2019-01-14 12:07 | XRay Report ---
CHEST 2 VIEWS INDICATION: cough. COMPARISON: 05/27/2018 FINDINGS: Support devices: None. Heart: Within normal limits. Lungs/pleura: No acute air space or interstitial disease. No pneumothorax. Additional findings: None. IMPRESSION: No acute findings. Signer Name: Sonu Palma Jr, MD Signed: 01/14/2019 12:02 PM Workstation Name: [id number]
== END 2019-01-14 12:55 | disposition home or self-care (01) ==
LOC: ED 11:16
DX: J20.9 Acute bronchitis, unspecified (principal); I10 Essential (primary) hypertension; E11.9 Type 2 diabetes mellitus without complications; E78.00 Pure hypercholesterolemia, unspecified; F17.200 Nicotine dependence, unspecified, uncomplicated; Z79.899 Other long term (current) drug therapy; Z88.6 Allergy status to analgesic agent; Z86.73 Personal history of transient ischemic attack (TIA), and cerebral infarction without residual deficits
CPT/HCPCS: 71046

== ENCOUNTER 2019-01-28 10:32 | Outpatient (CLI) | payer OTHER ==
[2019-01-28 11:13] LABS: Basophils # (Auto) 0.1 K/mm3 (0.0-0.1); Basophils % (Auto) 0.7 % (0.0-1.8); Eosinophils # (Auto) 0.1 K/mm3 (0.0-0.4); Eosinophils % (Auto) 1.3 % (0.0-4.3); Hematocrit 48.5 % (35.5-45.6); Hemoglobin 16.9 gm/dl (11.8-15.2); Lymphocytes # (Auto) 1.2 K/mm3 (1.2-5.4); Lymphocytes % (Auto) 14.3 % (13.4-35.0); Mean Corpuscular HGB Conc 35 % (32-34); Mean Corpuscular Volume 96 fl (84-94); Monocytes # (Auto) 0.6 K/mm3 (0.0-0.8); Monocytes % (Auto) 6.4 % (0.0-7.3); Red Blood Count 5.06 M/mm3 (3.65-5.03); Red Cell Distribution Width 13.7 % (13.2-15.2)
[2019-01-28 11:30] LABS: Chol/HDL Ratio 4.61 %
[2019-01-28 12:07] LABS: Platelet Count 125 K/mm3 (140-440)
== END 2019-01-28 10:33 | disposition home or self-care (01) ==
LOC: LAB 10:32
PROVIDERS: ATTEND Internal Medicine
DX: E78.5 Hyperlipidemia, unspecified (principal); D69.6 Thrombocytopenia, unspecified; E11.69 Type 2 diabetes mellitus with other specified complication; E78.00 Pure hypercholesterolemia, unspecified; I10 Essential (primary) hypertension
CPT/HCPCS: 36415; 80061; 83036; 85025

== ENCOUNTER 2020-08-26 21:09 | Emergency (ER) | payer OTHER ==
--- NOTE | 2020-08-26 22:01 | Emergency Department Report ---
ED ENT HPI - General Chief complaint: Dental/Oral Stated complaint: RT SIDE FACIAL ABSCESS Time Seen by Provider: 08/26/20 21:55 Source: patient Mode of arrival: Ambulatory Limitations: No Limitations - History of Present Illness Initial comments: 49-year-old male diabetic presents emerged department complaining of a couple day history of right cheek swelling and pain which is been progressively worsening since the onset. He reports no hemoptysis no hematemesis he reports no odynophagia or dysphagia. No fevers, chills, sweats. Reports no chest pain or palpitations. No nausea vomiting MD complaint: tooth pain -: Gradual Severity: mild, moderate Quality: aching, dull Consistency: constant Improves with: none Worsens with: none Context- Dental: history of dental caries, poor dental care Associated Symptoms: toothache. denies: pain with swallowing, sore throat, tinnitus, discharge from ear - Related Data Home Medications Medication Instructions Recorded Confirmed Last Taken Losartan 0.5 tab PO DAILY 05/27/18 05/27/18 Unknown metFORMIN [Glucophage] 500 mg PO BID 05/27/18 05/27/18 Unknown Previous Rx's Medication Instructions Recorded Last Taken Type Aspirin EC [Halfprin EC] 81 mg PO QDAY #30 tablet. 01/26/18 Unknown Rx Famotidine [Pepcid] 20 mg PO BID #30 tablet 01/26/18 Unknown Rx Amoxicillin [Amoxicillin TAB] 875 mg PO BID #14 tablet 01/14/19 Unknown Rx guaiFENesin/CODEINE [Robitussin AC] 10 ml PO TID PRN #100 ml 01/14/19 Unknown Rx Amoxicillin/Potassium Clav 1 each PO BID #20 tablet 08/26/20 Unknown Rx [Augmentin 875-125 Tablet] Chlorhexidine Mouthwash [Peridex] 15 ml MM BID #1 bottle 08/26/20 Unknown Rx Ketorolac [Toradol] 10 mg PO Q6H PRN #15 tablet 08/26/20 Unknown Rx Lidocaine Viscous 2% 5 ml MM Q3H PRN #120 udc 08/26/20 Unknown Rx Allergies Allergy/AdvReac Type Severity Reaction Status Date / Time lisinopril Allergy Unknown Verified 05/27/18 23:25 ED Dental HPI - General Chief complaint: Dental/Oral Stated complaint: RT SIDE FACIAL ABSCESS Time Seen by Provider: 08/26/20 21:55 Source: patient Mode of arrival: Ambulatory Limitations: No Limitations - Related Data Home Medications Medication Instructions Recorded Confirmed Last Taken Losartan 0.5 tab PO DAILY 05/27/18 05/27/18 Unknown metFORMIN [Glucophage] 500 mg PO BID 05/27/18 05/27/18 Unknown Previous Rx's Medication Instructions Recorded Last Taken Type Aspirin EC [Halfprin EC] 81 mg PO QDAY #30 tablet. 01/26/18 Unknown Rx Famotidine [Pepcid] 20 mg PO BID #30 tablet 01/26/18 Unknown Rx Amoxicillin [Amoxicillin TAB] 875 mg PO BID #14 tablet 01/14/19 Unknown Rx guaiFENesin/CODEINE [Robitussin AC] 10 ml PO TID PRN #100 ml 01/14/19 Unknown Rx Amoxicillin/Potassium Clav 1 each PO BID #20 tablet 08/26/20 Unknown Rx [Augmentin 875-125 Tablet] Chlorhexidine Mouthwash [Peridex] 15 ml MM BID #1 bottle 08/26/20 Unknown Rx Ketorolac [Toradol] 10 mg PO Q6H PRN #15 tablet 08/26/20 Unknown Rx Lidocaine Viscous 2% 5 ml MM Q3H PRN #120 udc 08/26/20 Unknown Rx Allergies Allergy/AdvReac Type Severity Reaction Status Date / Time lisinopril Allergy Unknown Verified 05/27/18 23:25 ED Review of Systems ROS: Stated complaint: RT SIDE FACIAL ABSCESS Other details as noted in HPI Comment: All other systems reviewed and negative ED Past Medical Hx - Past Medical History Hx Hypertension: Yes Hx Congestive Heart Failure: No Hx Diabetes: Yes Hx Asthma: No Hx COPD: No Additional medical history: TIA 05/27/16, High Cholesterol - Social History Smoking Status: Former Smoker Substance Use Type: None - Medications Home Medications: Home Medications Medication Instructions Recorded Confirmed Last Taken Type Aspirin EC [Halfprin EC] 81 mg PO QDAY #30 tablet. 01/26/18 05/27/18 Unknown Rx Famotidine [Pepcid] 20 mg PO BID #30 tablet 01/26/18 05/27/18 Unknown Rx Losartan 0.5 tab PO DAILY 05/27/18 05/27/18 Unknown History metFORMIN [Glucophage] 500 mg PO BID 05/27/18 05/27/18 Unknown History Amoxicillin [Amoxicillin TAB] 875 mg PO BID #14 tablet 01/14/19 Unknown Rx guaiFENesin/CODEINE [Robitussin AC] 10 ml PO TID PRN #100 ml 01/14/19 Unknown Rx Amoxicillin/Potassium Clav 1 each PO BID #20 tablet 08/26/20 Unknown Rx [Augmentin 875-125 Tablet] Chlorhexidine Mouthwash [Peridex] 15 ml MM BID #1 bottle 08/26/20 Unknown Rx Ketorolac [Toradol] 10 mg PO Q6H PRN #15 tablet 08/26/20 Unknown Rx Lidocaine Viscous 2% 5 ml MM Q3H PRN #120 udc 08/26/20 Unknown Rx ED Physical Exam - General Limitations: No Limitations General appearance: alert, in no apparent distress - Head Head exam: Present: atraumatic, normocephalic - Eye Eye exam: Present: normal appearance, PERRL, EOMI Pupils: Present: normal accommodation - ENT ENT exam: Present: normal exam, mucous membranes moist, other - Expanded ENT Exam Expanded Teeth exam: Present: dental caries 1 - Other (Pain swelling to the right upper area with an abscess forming. Some erythema is noted. Airway is patent tongue uvula are midline) Throat exam: Positive: tonsillar erythema - Neck Neck exam: Present: normal inspection. Absent: meningismus, thyromegaly - Respiratory Respiratory exam: Present: normal lung sounds bilaterally. Absent: respiratory distress, wheezes, rales, rhonchi - Cardiovascular Cardiovascular Exam: Present: regular rate, normal rhythm. Absent: systolic murmur, diastolic murmur, rubs, gallop - GI/Abdominal GI/Abdominal exam: Present: soft, normal bowel sounds - Rectal Rectal exam: Present: deferred - Extremities Exam Extremities exam: Present: normal inspection - Back Exam Back exam: Present: normal inspection - Neurological Exam Neurological exam: Present: alert, oriented X3 - Psychiatric Psychiatric exam: Present: normal affect, normal mood - Skin Skin exam: Present: warm, dry, intact, normal color. Absent: rash Critical care attestation.: If time is entered above; I have spent that time in minutes in the direct care of this critically ill patient, excluding procedure time. ED Disposition Clinical Impression: Dental abscess Disposition: DC-01 TO HOME OR SELFCARE Is pt being admited?: No Does the pt Need Aspirin: No Condition: Stable Instructions: Dental Abscess Prescriptions: Amoxicillin/Potassium Clav [Augmentin 875-125 Tablet] 1 each PO BID #20 tablet Lidocaine Viscous 2% 5 ml MM Q3H PRN #120 udc PRN Reason: Pain, Moderate (4-6) Chlorhexidine Mouthwash [Peridex] 15 ml MM BID #1 bottle Ketorolac [Toradol] 10 mg PO Q6H PRN #15 tablet PRN Reason: Pain Referrals: [facility] [Outside] - 3-5 Days
== END 2020-08-26 22:22 | disposition home or self-care (01) ==
LOC: ED 21:09
DX: K04.7 Periapical abscess without sinus (principal); I10 Essential (primary) hypertension; E78.00 Pure hypercholesterolemia, unspecified; Z87.891 Personal history of nicotine dependence; Z88.8 Allergy status to other drugs, medicaments and biological substances; Z79.82 Long term (current) use of aspirin; Z79.899 Other long term (current) drug therapy
CPT/HCPCS: 99282

== ENCOUNTER 2020-12-30 16:36 | Emergency (ER) | payer OTHER ==
--- NOTE | 2020-12-30 17:49 | Emergency Department Report ---
ED Abdominal Pain HPI - General Chief Complaint: Abdominal Pain Stated Complaint: ABN ULTRASOUND Time Seen by Provider: 12/30/20 17:34 Source: patient Mode of arrival: Ambulatory Limitations: No Limitations - History of Present Illness Initial Comments: 50-year-old male sent to ED by PCP for possible abnormal ultrasound. Patient states 2 months ago he noticed 2 knots at the bottom of his sternum. Patient reports pain in the area of those knots. Worse with eating. Denies any nausea or vomiting. Patient states he was sent to an outpatient radiology facility for abdominal ultrasound. Patient states he spoke with his doctor today and was told that the ultrasound showed that he might have "some blood clots" and that he needed to come to the ER for further evaluation. MD Complaint: abdominal pain -: month(s) (2) Location: epigastric Radiation: none Migration to: no migration Severity: moderate Quality: aching Consistency: intermittent Improves With: nothing Worsens With: eating Associated Symptoms: denies: nausea, vomiting - Related Data Home Medications Medication Instructions Recorded Confirmed Last Taken Losartan 0.5 tab PO DAILY 05/27/18 05/27/18 Unknown metFORMIN [Glucophage] 500 mg PO BID 05/27/18 05/27/18 Unknown Previous Rx's Medication Instructions Recorded Last Taken Type Aspirin EC [Halfprin EC] 81 mg PO QDAY #30 tablet. 01/26/18 Unknown Rx Famotidine [Pepcid] 20 mg PO BID #30 tablet 01/26/18 Unknown Rx Amoxicillin [Amoxicillin TAB] 875 mg PO BID #14 tablet 01/14/19 Unknown Rx guaiFENesin/CODEINE [Robitussin AC] 10 ml PO TID PRN #100 ml 01/14/19 Unknown Rx Amoxicillin/Potassium Clav 1 each PO BID #20 tablet 08/26/20 Unknown Rx [Augmentin 875-125 Tablet] Chlorhexidine Mouthwash [Peridex] 15 ml MM BID #1 bottle 08/26/20 Unknown Rx Ketorolac [Toradol] 10 mg PO Q6H PRN #15 tablet 08/26/20 Unknown Rx Lidocaine Viscous 2% 5 ml MM Q3H PRN #120 udc 08/26/20 Unknown Rx Allergies Allergy/AdvReac Type Severity Reaction Status Date / Time lisinopril Allergy Unknown Verified 05/27/18 23:25 losartan AdvReac Unknown Verified 12/30/20 16:54 ED Review of Systems ROS: Stated complaint: ABN ULTRASOUND Other details as noted in HPI Comment: All other systems reviewed and negative Constitutional: denies: fever Gastrointestinal: abdominal pain. denies: nausea, vomiting ED Past Medical Hx - Past Medical History Hx Hypertension: Yes Hx Congestive Heart Failure: No Hx Diabetes: Yes Hx Asthma: No Hx COPD: No Additional medical history: TIA 05/27/16, High Cholesterol - Social History Smoking Status: Former Smoker Substance Use Type: None - Medications Home Medications: Home Medications Medication Instructions Recorded Confirmed Last Taken Type Aspirin EC [Halfprin EC] 81 mg PO QDAY #30 tablet. 01/26/18 05/27/18 Unknown Rx Famotidine [Pepcid] 20 mg PO BID #30 tablet 01/26/18 05/27/18 Unknown Rx Losartan 0.5 tab PO DAILY 05/27/18 05/27/18 Unknown History metFORMIN [Glucophage] 500 mg PO BID 05/27/18 05/27/18 Unknown History Amoxicillin [Amoxicillin TAB] 875 mg PO BID #14 tablet 01/14/19 Unknown Rx guaiFENesin/CODEINE [Robitussin AC] 10 ml PO TID PRN #100 ml 01/14/19 Unknown Rx Amoxicillin/Potassium Clav 1 each PO BID #20 tablet 08/26/20 Unknown Rx [Augmentin 875-125 Tablet] Chlorhexidine Mouthwash [Peridex] 15 ml MM BID #1 bottle 08/26/20 Unknown Rx Ketorolac [Toradol] 10 mg PO Q6H PRN #15 tablet 08/26/20 Unknown Rx Lidocaine Viscous 2% 5 ml MM Q3H PRN #120 udc 08/26/20 Unknown Rx ED Physical Exam - General Limitations: No Limitations General appearance: alert, in no apparent distress - Head Head exam: Present: atraumatic, normocephalic - Eye Eye exam: Present: normal appearance, EOMI - ENT ENT exam: Present: mucous membranes moist - Neck Neck exam: Present: normal inspection - Respiratory Respiratory exam: Present: normal lung sounds bilaterally. Absent: respiratory distress - Cardiovascular Cardiovascular Exam: Present: normal rhythm, tachycardia - GI/Abdominal GI/Abdominal exam: Present: soft, tenderness (Mild epigastric). Absent: distended - Extremities Exam Extremities exam: Present: normal inspection - Neurological Exam Neurological exam: Present: alert, oriented X3 - Psychiatric Psychiatric exam: Present: normal affect, normal mood - Skin Skin exam: Present: warm, dry, intact, normal color ED Course Vital Signs 12/30/20 12/30/20 16:52 21:49 Temperature 98.5 F 98.2 F Pulse Rate 104 H 77 Respiratory 18 18 Rate Blood Pressure 110/65 127/71 [Left] O2 Sat by Pulse 99 99 Oximetry ED Medical Decision Making - Lab Data Result diagrams: 12/30/20 17:59 12/30/20 17:59 - Radiology Data Radiology results: report reviewed, image reviewed - Medical Decision Making 50-year-old male sent to ED for questionable abnormal abdominal ultrasound. Patient states ultrasound was ordered because he felt 2 knots in his abdomen and had been having some epigastric pain. The 2 knots that patient refers to seems to be the inferior aspect of his sternum. Patient also has some mild epigastric tenderness. Labs unremarkable. CT abdomen pelvis also unremarkable for any intra-abdominal pathology. Incidental finding of pulmonary nodule was relayed to the patient. Patient will be discharged at this time. Outpatient follow-up advised, return precautions given. - Differential Diagnosis Pancreatitis, GERD, Critical care attestation.: If time is entered above; I have spent that time in minutes in the direct care of this critically ill patient, excluding procedure time. ED Disposition Clinical Impression: Abdominal pain Disposition: 01 HOME / SELF CARE / HOMELESS Is pt being admited?: No Condition: Stable Instructions: Abdominal Pain, Adult, [id number] Additional Instructions: There was an incidental pulmonary nodule seen in your right lung. It is recommended that you have a repeat CT scan of your chest in 12 months to follow- up on this nodule. Referrals: TALI GREEN [Other] - 3-5 Days Time of Disposition: 21:21
[2020-12-30 18:38] LABS: Basophils % (Auto) 0.6 % (0.0-1.8); Eosinophils # (Auto) 0.1 K/mm3 (0.0-0.4); Eosinophils % (Auto) 1.3 % (0.0-4.3); Hematocrit 40.4 % (35.5-45.6); Hemoglobin 14.3 gm/dl (11.8-15.2); Lymphocytes # (Auto) 1.7 K/mm3 (1.2-5.4); Lymphocytes % (Auto) 24.1 % (13.4-35.0); Mean Corpuscular HGB Conc 36 % (32-34); Mean Corpuscular Volume 96 fl (84-94); Monocytes # (Auto) 0.5 K/mm3 (0.0-0.8); Monocytes % (Auto) 6.9 % (0.0-7.3); Platelet Count 118 K/mm3 (140-440); Red Blood Count 4.19 M/mm3 (3.65-5.03); Red Cell Distribution Width 13.3 % (13.2-15.2)
[2020-12-30 18:45] LABS: INR 0.84 (0.87-1.13); Partial Thromboplastin Time 32.6 Sec. (24.2-36.6)
[2020-12-30 18:58] LABS: Blood Urea Nitrogen 17 mg/dL (9-20); Calcium 9.4 mg/dL (8.4-10.2); Hemolysis Index 10
[2020-12-30 19:00] LABS: Alanine Aminotransferase 20 units/L (7-56); Albumin 4.5 g/dL (3.9-5)
[2020-12-30 19:03] LABS: BUN/Creatinine Ratio 24; Bilirubin,Direct < 0.2 mg/dL (0-0.2)
--- NOTE | 2020-12-30 20:50 | Cat Scan Report ---
CT ABDOMEN AND PELVIS WITH CONTRAST INDICATION: epigastric pain. TECHNIQUE: Axial CT images were obtained through the abdomen and pelvis after 100 cc IV contrast. All CT scans at this location are performed using CT dose reduction for ALARA by means of automated exposure contr ol. COMPARISON: None available. FINDINGS: LOWER CHEST: No significant abnormality. 5 mm solid right middle lobe pulmonary nodule image 6 LIVER: No significant abnormality. GALLBLADDER: No significant abnormality. BILE DUCTS: No significant abnormality. PANCREAS: No significant abnormality. SPLEEN: No significant abnormality. ADRENALS: No significant abnormality. RIGHT KIDNEY and URETER: No significant abnormality. LEFT KIDNEY and URETER: No significant abnormality. STOMACH and SMALL BOWEL: No significant abnormality. COLON: No significant abnormality. APPENDIX: No significant abnormality. PERITONEUM: No free fluid. No free air. No fluid collection. LYMPH NODES: No significant adenopathy. AORTA and ARTERIES: No significant abnormality. IVC and VEINS: No significant abnormality. URINARY BLADDER: No significant abnormality. REPRODUCTIVE ORGANS: No significant abnormality. ADDITIONAL FINDINGS: None. SKELETAL SYSTEM: No significant abnormality. IMPRESSION: 1. No significant abnormality. 2. Single incidental pulmonary nodule(s) in the right middle lobe measuring 5 mm with solid character istics. Recommendation according to Fleischner Society 2017 Guidelines: Low Risk Patient: No routine follow-up; High Risk Patient: Optional CT at 12 months. Signer Name: Perico Yo MD Signed: 12/30/2020 8:46 PM Workstation Name: [id number]
[2020-12-30 21:49] VITALS: BP 127/71
== END 2020-12-30 21:52 | disposition home or self-care (01) ==
LOC: ED 16:36
DX: R10.13 Epigastric pain (principal); I10 Essential (primary) hypertension; E11.9 Type 2 diabetes mellitus without complications; E78.00 Pure hypercholesterolemia, unspecified; Z87.891 Personal history of nicotine dependence; Z88.8 Allergy status to other drugs, medicaments and biological substances; Z79.82 Long term (current) use of aspirin; Z79.899 Other long term (current) drug therapy
CPT/HCPCS: 36415; 74177; 80048; 80076; 83690; 85025; 85610; 85730; 99284; Q9967

== ENCOUNTER 2021-11-28 21:34 | Emergency (ER) | payer OTHER ==
--- NOTE | 2021-11-28 23:08 | XRay Report ---
Right ankle 3 views INDICATION: Right ankle pain after injury IMPRESSION: There is a minimally displaced obliquely oriented fracture identified through the lateral malleolus. The ankle mortise remains mostly symmetric. Small ankle effusion. Signer Name: Nathan Dow MD Signed: 11/28/2021 11:03 PM Workstation Name: [id number]
[2021-11-29] MEDS ORDERED: MORPHINE 4 MG/1 ML INJ IV STA (04:47)
[2021-11-29] MEDS ORDERED: ONDANSETRON 4 MG/2 ML INJ IV STA (04:47)
[2021-11-29 05:00] LABS: Basophils % (Auto) 0.3 % (0.0-1.8); Eosinophils # (Auto) 0.1 K/mm3 (0.0-0.4); Eosinophils % (Auto) 0.7 % (0.0-4.3); Hematocrit 42.3 % (35.5-45.6); Hemoglobin 14.3 gm/dl (11.8-15.2); Lymphocytes # (Auto) 1.2 K/mm3 (1.2-5.4); Lymphocytes % (Auto) 12.7 % (13.4-35.0); Mean Corpuscular HGB Conc 34 % (32-34); Mean Corpuscular Volume 97 fl (84-94); Monocytes # (Auto) 0.8 K/mm3 (0.0-0.8); Monocytes % (Auto) 8.2 % (0.0-7.3); Platelet Count 109 K/mm3 (140-440); Red Blood Count 4.34 M/mm3 (3.65-5.03); Red Cell Distribution Width 13.5 % (13.2-15.2)
--- NOTE | 2021-11-29 05:30 | Cat Scan Report ---
CT head without contrast INDICATION : Syncope TECHNIQUE: Axial imaging performed from the skull apex through the skull base without the use of con trast. All CT examinations performed at this facility utilize dose modulation, iterative reconstruct ion or weight-based dosing, when appropriate, to reduce radiation dose to as low as reasonably achiev able. COMPARISON: 06/24/2016 FINDINGS: No acute intracranial hemorrhage or parenchymal abnormality. Ventricles are normal in si ze and appear symmetric. Evidence of a matthew cisterna magna versus arachnoid cyst noted within the pos terior cranial fossa, similar to 06/24/2016 Soft tissues including the orbits appear normal. No acut e osseous abnormality. Sinuses and mastoid air cells are clear. IMPRESSION: No acute intracranial abnormality. Signer Name: Nathan Dow MD Signed: 11/29/2021 5:25 AM Workstation Name: [id number]
[2021-11-29 05:49] LABS: Alanine Aminotransferase 18 units/L (7-56); Albumin 4.6 g/dL (3.9-5); BUN/Creatinine Ratio 19; Blood Urea Nitrogen 17 mg/dL (9-20); Calcium 9.9 mg/dL (8.4-10.2); Hemolysis Index 17
[2021-11-29 05:59] VITALS: BP 116/66
--- NOTE | 2021-11-29 10:05 | Electrocardiograph Report ---
[facility] Test Date: 2021-11-28 Test Time: 22:28:33 Pat Name: JUNI MONTOYA Department: Room: Gender: M Pbx Teacher: : 1970 Requested By: BARBARA CASTILLO Order Number: [id number] Reading MD: Anastacio Wheeler Measurements Intervals [place] Rate: 104 P: 56 ME: 169 QRS: 20 QRSD: 85 T: 30 QT: 318 QTc: 419 Interpretive Statements Sinus tachycardia nonspecific st-t No previous ECG available for comparison Electronically Signed On 11-29-2021 10:05:33 EDT by Anastacio Wheeler
== END 2021-11-29 05:59 | disposition home or self-care (01) ==
LOC: ED 21:34
DX: R55 Syncope and collapse (principal); R51.9 Headache, unspecified
CPT/HCPCS: 36415; 70450; 73610; 80053; 82962; 83735; 84484; 85025; 93005; J2270; J2405; 96374; 96375; 99284